=== PATIENT | female | born 1935 | race Caucasian/White ===

== ENCOUNTER 2016-10-07 15:47 | Emergency (ER) | payer MEDICARE, BC ==
[2016-10-07] MEDS ORDERED: NS 0.9% 1000 ML* 1,000 ML IV SCH (16:15)
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
[2016-10-07] MEDS: Acetaminophen TAB* 325 MG PO ONE ×2 (17:29→17:34)
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
[2016-10-07 17:56] VITALS: BP 186/69
== END 2016-10-07 17:56 | disposition home or self-care (01) ==
LOC: ED 15:47
DX: S20.219A Contusion of unspecified front wall of thorax, initial encounter (principal); V49.9XXA Car occupant (driver) (passenger) injured in unspecified traffic accident, initial encounter; Y93.9 Activity, unspecified; Y92.9 Unspecified place or not applicable
CPT/HCPCS: 71250; 72125; 74176; 99283; A9270-GY

== ENCOUNTER 2018-01-27 21:50 | Emergency (ER) | payer MEDICARE, OTHER ==
[2018-01-27] MEDS ORDERED: Albuterol 2.5 MG/3 ML NEB.SOL* (0.083%) INH ONE (22:12)
[2018-01-27] MEDS ORDERED: Famotidine IV* 10 MG/ML 2 ML (20 mg) IV SLOW PU ONE (22:12)
[2018-01-27] MEDS ORDERED: methylPREDNISolone 125 MG* 2 ML VIAL IV ONE (22:12)
--- NOTE | 2018-01-27 23:07 | ED ---
Allergic Reaction/Systemic - HPI Summary HPI Summary: 82-year-old female presents with allergic reaction today. She states she has a grape and immediately afterwards she felt some chest tightness and shortness breath. She states she has history asthma. She tried inhaler and it did not work. She took a benadryl and started to feel better. States she has history of multiple food allergies. She's never had this reaction to grapes before. She states she's had this reaction before to wine but never to grapes. She denies any bowel pain. No nausea and vomiting. no tongue swelling. No difficulty swallowing. No fever or headache. She is concerned that she will have a delayed reaction. States normally when this happens she is given a steroid and pepcid and her symptoms resolve. - History of Current Complaint Chief Complaint: EDAllergicReaction Time Seen by Provider: 01/27/18 22:07 Pain Intensity: 0 - Allergies/Home Medications Allergies/Adverse Reactions: Allergies Allergy/AdvReac Type Severity Reaction Status Date / Time MS Ampicillin [Ampicillin] Allergy Severe Rash Verified 12/17/15 22:19 MS Cimetidine Allergy Severe Altered Verified 12/17/15 22:19 [From Tagamet HB] Mental Status MS Levofloxacin Allergy Severe Wheezing Verified 12/17/15 22:19 [Levofloxacin] MS Penicillins [Penicillins] Allergy Severe Hives Verified 12/17/15 22:19 MS Terfenadine [From Seldane] Allergy Severe Palpitation Verified 12/17/15 22:19 s MS Codeine [Codeine] Allergy Intermediate GI Upset Verified 12/17/15 22:19 MS Morphine [Morphine] Allergy Intermediate Vomiting Verified 12/17/15 22:19 MS Amoxicillin [Amoxicillin] Allergy Rash Verified 12/17/15 22:19 MS Cefaclor [From Ceclor] Allergy Unknown Verified 12/17/15 22:19 Reaction Details MS Morphine and Related Allergy Vomiting Verified 12/17/15 22:19 [Morphine and Related] CONTRAST DYE Allergy Wheezing Uncoded 12/17/15 22:19 PMH/Surg Hx/FS Hx/Imm Hx Endocrine/Hematology History: Denies: Hx Diabetes, Hx Systemic Lupus Erythematosus Cardiovascular History: Denies: Hx Congestive Heart Failure, Hx Hypertension, Hx Pacemaker/ICD Respiratory History: Reports: Hx Asthma - moderate to severe, Hx Pneumonia, Hx Seasonal Allergies Denies: Hx Chronic Bronchitis, Hx Chronic Obstructive Pulmonary Disease (COPD ), Hx Cystic Fibrosis, Hx Lung Cancer, Hx Pleural Effusion, Hx Pulmonary Edema, Hx Pulmonary Embolism, Hx Sleep Apnea, Other Respiratory Problems/Disorders GI History: Reports: Hx Diverticulosis, Hx Gastroesophageal Reflux Disease, Hx Irritable Bowel, Hx Jaundice, Other GI Disorders - severe adhesions in abdomen with adhesive band around bowel Denies: Hx Cirrhosis, Hx Crohn's Disease, Hx Gall Bladder Disease, Hx Gastrointestinal Bleed, Hx Hiatal Hernia, Hx Obstructive Bowel, Hx Ileostomy, Hx Pyloric Stenosis, Hx Ulcer History: Denies: Hx Renal Disease Musculoskeletal History: Reports: Hx Arthritis, Hx Osteoporosis, Other Musculoskeletal History - collapsed vertebra in back Denies: Hx Rheumatoid Arthritis, Hx Back Problems, Hx Bursitis, Hx Congenital Bone Abnormalities, Hx Fibromyalgia, Hx Gout, Hx Orthopedic Injury, Hx Scoliosis, Hx Tendonitis Sensory History: Reports: Hx Contacts or Glasses Denies: Hx Cataracts, Hx Eye Injury, Hx Eye Prosthesis, Hx Glaucoma, Hx Legally Blind, Hx Macular Degeneration, Hx Vision Problem, Hx Deafness, Hx Hearing Aid, Hx Hearing Problem, Other Sensory Impairments Opthamlomology History: Reports: Hx Contacts or Glasses Denies: Hx Cataracts, Hx Eye Injury, Hx Eye Prosthesis, Hx Glaucoma, Hx Legally Blind, Hx Macular Degeneration, Hx Vision Problem, Other Sensory Impairments Neurological History: Reports: Hx Migraine Denies: Hx Dementia, Hx Developmental Delay, Hx Headaches, Hx Nerve Disease, Hx Seizures, Hx Spinal Cord Injury, Hx Transient Ischemic Attacks (TIA), Other Neuro Impairments/Disorders Psychiatric History: Denies: Hx Panic Disorder - Cancer History Cancer Type, Location and Year: BASAL CELL Hx Chemotherapy: No - Surgical History Surgery Procedure, Year, and Place: BASAL CELL REMOVED FROM ELBOW, cyst burst in left ovary, hysterectomy, appy, tonsilectomy (age 19) Hx Anesthesia Reactions: No Infectious Disease History: No Infectious Disease History: Reports: Hx Hepatitis - 1956, Hx Shingles Denies: Hx Human Immunodeficiency Virus (HIV), Hx of Known/Suspected MRSA, Hx Tuberculosis, Hx Known/Suspected VRE, Hx Known/Suspected VRSA, History Other Infectious Disease, Traveled Outside the [place] in Last 30 Days - Family History Known Family History: Positive: Diabetes - Social History Alcohol Use: None Hx Substance Use: No Substance Use Type: Reports: None Hx Tobacco Use: No Smoking Status (MU): Never Smoked Tobacco Review of Systems Negative: Fever Positive: Sore Throat - mucus Negative: Chest Pain Positive: Shortness Of Breath Negative: Abdominal Pain, Vomiting All Other Systems Reviewed And Are Negative: Yes Physical Exam Triage Information Reviewed: Yes Vital Signs On Initial Exam: Initial Vitals Temp Pulse Resp BP Pulse Ox 98.9 F 83 18 164/74 98 01/27/18 21:54 01/27/18 21:54 01/27/18 21:54 01/27/18 21:54 01/27/18 21:54 Vital Signs Reviewed: Yes Appearance: Positive: Well-Appearing Skin: Positive: Warm, Dry Head/Face: Positive: Normal Head/Face Inspection Eyes: Positive: Normal, EOMI, ROSCOE, Conjunctiva Clear ENT: Positive: Normal ENT inspection, Pharynx normal, TMs normal Respiratory/Lung Sounds: Positive: Clear to Auscultation, Breath Sounds Present Cardiovascular: Positive: Normal, RRR Abdomen Description: Positive: Nontender, Soft Bowel Sounds: Positive: Present Musculoskeletal: Positive: Normal Neurological: Positive: Normal Psychiatric: Positive: Normal Diagnostics - Vital Signs Vital Signs Temp Pulse Resp BP Pulse Ox 01/27/18 22:46 67 16 100 01/27/18 21:54 98.9 F 83 18 164/74 98 - Laboratory Lab Statement: Any lab studies that have been ordered have been reviewed, and results considered in the medical decision making process. Re-Evaluation - Re-Evaluation First Eval Re-Evaluation Time: 23:39 Change: Improved Comment: no chest tightness Allergic Reaction Course/Dx - Course Course Of Treatment: 82-year-old female presents with allergic reaction today. She states she has a grape and immediately afterwards she felt some chest tightness and shortness breath. She states she has history asthma. She tried inhaler and it did not work. She took a benadryl and started to feel better. States she has history of multiple food allergies. She's never had this reaction to grapes before. She states she's had this reaction before to wine but never to grapes. She denies any bowel pain. No nausea and vomiting. no tongue swelling. No difficulty swallowing. No fever or headache. She is concerned that she will have a delayed reaction. States normally when this happens she is given a steroid and pepcid and her symptoms resolve. on exam pharynx normal. lungs CTA. gave steriod and nebulizer and symptoms resolved. will send home on steriod. patient understand and agrees with plan. - Diagnoses Differential Diagnosis/HQI/PQRI: Positive: Anaphylaxis, Local Allergic Reaction , Urticaria Provider Diagnoses: Allergic reaction Discharge - Sign-Out/Discharge Documenting (check all that apply): Patient Departure - Discharge Plan Condition: Good Disposition: HOME Prescriptions: predniSONE TAB* [Deltasone TAB*] 50 mg PO DAILY #4 tab Patient Education Materials: Food Allergy (ED) Referrals: Cristiana Garcia MD [Primary Care Provider] - Additional Instructions: take steroid once a day take Benadryl every 6 hours as need for any allergic reaction symptoms Take inhaler as needed for shortness of breath every 4 hours Follow up with primary within 5 days Return to ED if develop any new or worsening symptoms - Billing Disposition and Condition Condition: GOOD Disposition: Home
[2018-01-27 23:29] VITALS: BP 134/53
== END 2018-01-27 23:28 | disposition home or self-care (01) ==
LOC: ED 21:50
DX: T78.40XA Allergy, unspecified, initial encounter (principal); J02.9 Acute pharyngitis, unspecified; R06.02 Shortness of breath; X58.XXXA Exposure to other specified factors, initial encounter
CPT/HCPCS: 96374; 96375; 99282; J2930

== ENCOUNTER 2018-03-02 17:00 | Emergency (ER) | payer BC, MEDICARE ==
--- NOTE | 2018-03-02 17:37 | ED ---
Allergic Reaction/Systemic - HPI Summary HPI Summary: This patient is an 82 year old F presenting to ED with a chief complaint of allergic reaction about 2-3 minutes after having seafood at about 1640. Patient took 1.5 teaspoon of benadryl and solumedrol PO. After taking medications, she felt better about 40 minutes later. The patient rates the pain 0/10 in severity. Symptoms aggravated by nothing. Symptoms alleviated by self-treatment [employer]. Patient reports cough and tightness in her chest. - History of Current Complaint Chief Complaint: EDAllergicReaction Time Seen by Provider: 03/02/18 17:19 Hx Obtained From: Patient Onset/Duration: Sudden Onset, Started hours ago - since 1640, Still Present Timing: Constant Severity Currently: None Pain Intensity: 0 Pain Scale Used: 0-10 Numeric Aggravating Factor(s): Nothing Alleviating Factor(s): Other - 1.5 teaspoon of benadryl and solumedrol PO Associated Signs And Symptoms: Positive: Cough Wheezing, Other: - chest tightness - Allergies/Home Medications Allergies/Adverse Reactions: Allergies Allergy/AdvReac Type Severity Reaction Status Date / Time amoxicillin Allergy Anaphylatic Verified 03/02/18 17:10 Shock ampicillin Allergy Anaphylatic Verified 03/02/18 17:10 Shock cefaclor [From Ceclor] Allergy Anaphylatic Verified 03/02/18 17:10 Shock cimetidine [From Tagamet] Allergy Anaphylatic Verified 03/02/18 17:10 Shock Iodinated Contrast- Oral and Allergy Anaphylatic Verified 03/02/18 17:10 IV Dye Shock levofloxacin Allergy Anaphylatic Verified 03/02/18 17:10 Shock morphine Allergy Anaphylatic Verified 03/02/18 17:10 Shock Penicillins Allergy Anaphylatic Verified 03/02/18 17:10 Shock terfenadine [From Seldane] Allergy Anaphylatic Verified 03/02/18 17:10 Shock food Allergy See Comment Uncoded 03/02/18 17:10 PMH/Surg Hx/FS Hx/Imm Hx Endocrine/Hematology History: Denies: Hx Diabetes, Hx Systemic Lupus Erythematosus Cardiovascular History: Denies: Hx Congestive Heart Failure, Hx Hypertension, Hx Pacemaker/ICD Respiratory History: Reports: Hx Asthma - moderate to severe, Hx Pneumonia, Hx Seasonal Allergies Denies: Hx Chronic Bronchitis, Hx Chronic Obstructive Pulmonary Disease (COPD ), Hx Cystic Fibrosis, Hx Lung Cancer, Hx Pleural Effusion, Hx Pulmonary Edema, Hx Pulmonary Embolism, Hx Sleep Apnea, Other Respiratory Problems/Disorders GI History: Reports: Hx Diverticulosis, Hx Gastroesophageal Reflux Disease, Hx Irritable Bowel, Hx Jaundice, Other GI Disorders - severe adhesions in abdomen with adhesive band around bowel Denies: Hx Cirrhosis, Hx Crohn's Disease, Hx Gall Bladder Disease, Hx Gastrointestinal Bleed, Hx Hiatal Hernia, Hx Obstructive Bowel, Hx Ileostomy, Hx Pyloric Stenosis, Hx Ulcer History: Denies: Hx Renal Disease Musculoskeletal History: Reports: Hx Arthritis, Hx Osteoporosis, Other Musculoskeletal History - collapsed vertebra in back Denies: Hx Rheumatoid Arthritis, Hx Back Problems, Hx Bursitis, Hx Congenital Bone Abnormalities, Hx Fibromyalgia, Hx Gout, Hx Orthopedic Injury, Hx Scoliosis, Hx Tendonitis Sensory History: Reports: Hx Contacts or Glasses Denies: Hx Cataracts, Hx Eye Injury, Hx Eye Prosthesis, Hx Glaucoma, Hx Legally Blind, Hx Macular Degeneration, Hx Vision Problem, Hx Deafness, Hx Hearing Aid, Hx Hearing Problem, Other Sensory Impairments Opthamlomology History: Reports: Hx Contacts or Glasses Denies: Hx Cataracts, Hx Eye Injury, Hx Eye Prosthesis, Hx Glaucoma, Hx Legally Blind, Hx Macular Degeneration, Hx Vision Problem, Other Sensory Impairments Neurological History: Reports: Hx Migraine Denies: Hx Dementia, Hx Developmental Delay, Hx Headaches, Hx Nerve Disease, Hx Seizures, Hx Spinal Cord Injury, Hx Transient Ischemic Attacks (TIA), Other Neuro Impairments/Disorders Psychiatric History: Denies: Hx Panic Disorder - Cancer History Cancer Type, Location and Year: BASAL CELL Hx Chemotherapy: No - Surgical History Surgery Procedure, Year, and Place: BASAL CELL REMOVED FROM ELBOW, cyst burst in left ovary, hysterectomy, appy, tonsilectomy (age 19) Hx Anesthesia Reactions: No Infectious Disease History: No Infectious Disease History: Reports: Hx Hepatitis - 1954, Hx Shingles Denies: Hx Human Immunodeficiency Virus (HIV), Hx of Known/Suspected MRSA, Hx Tuberculosis, Hx Known/Suspected VRE, Hx Known/Suspected VRSA, History Other Infectious Disease, Traveled Outside the [place] in Last 30 Days - Family History Known Family History: Positive: Diabetes - Social History Alcohol Use: None Hx Substance Use: No Substance Use Type: Reports: None Hx Tobacco Use: No Smoking Status (MU): Never Smoked Tobacco Review of Systems Negative: Fever Positive: Cough, Other - tightness in her chest All Other Systems Reviewed And Are Negative: Yes Physical Exam - Summary Physical Exam Summary: Appearance: The patient is well-nourished in no acute distress and in no acute pain. Skin: The skin is warm and dry and skin color reflects adequate perfusion. HEENT: The head is normocephalic and atraumatic. The pupils are equal and reactive. The conjunctivae are clear and without drainage. Nares are patent and without drainage. Mouth reveals moist mucous membranes and the throat is without erythema and exudate. The external ears are intact. The ear canals are patent and without drainage. The tympanic membranes are intact. Neck: The neck is supple with full range of motion and non-tender. There are no carotid bruits. There is no neck vein distension. Respiratory: Chest is non-tender. Lungs are clear to auscultation and breath sounds are symmetrical and equal. Cardiovascular: Heart is regular rate and rhythm. There is no murmur or rub auscultated. There is no peripheral edema and pulses are symmetrical and equal. Abdomen: The abdomen is soft and non-tender. There are normal bowel sounds heard in all four quadrants and there is no organomegaly palpated. Musculoskeletal: There is no back tenderness noted. Extremities are non-tender with full range of motion. There is good capillary refill. There is no peripheral edema or calf tenderness elicited. Neurological: Patient is alert and oriented to person, place and time. The patient has symmetrical motor strength in all four extremities. Cranial nerves are grossly intact. Deep tendon reflexes are symmetrical and equal in all four extremities. Psychiatric: The patient has an appropriate affect and does not exhibit any anxiety or depression. Triage Information Reviewed: Yes Vital Signs On Initial Exam: Initial Vitals Temp Pulse Resp BP Pulse Ox 98.2 F 73 18 148/52 97 03/02/18 17:10 03/02/18 17:10 03/02/18 17:10 03/02/18 17:10 03/02/18 17:10 Vital Signs Reviewed: Yes Diagnostics - Vital Signs Vital Signs Temp Pulse Resp BP Pulse Ox 03/02/18 17:10 98.2 F 73 18 148/52 97 - Laboratory Lab Statement: Any lab studies that have been ordered have been reviewed, and results considered in the medical decision making process. Allergic Reaction Course/Dx - Course Course Of Treatment: Ms. Mae was feeling improved by the time she arrived here and we will extra for a couple of minutes until she requested to be discharged. I did offer to give her additional steroids her medications here but she felt she didn't need them. - Diagnoses Differential Diagnosis/HQI/PQRI: Positive: Other - allergic reaction Provider Diagnoses: Allergic reaction Discharge - Sign-Out/Discharge Documenting (check all that apply): Patient Departure - Discharge Plan Condition: Stable Disposition: HOME Prescriptions: methylPREDNISolone [Medrol Dosepak 4 MG*] 4 mg PO .SEE DU INSTRUCTION #1 tab Patient Education Materials: Food Allergy (ED), General Allergic Reaction (ED) Referrals: Cristiana Garcia MD [Primary Care Provider] - (Please follow up with your primary care physician in 2-3 days.) Additional Instructions: Please follow up with your primary care physician in 2-3 days. RETURN TO THE ED FOR ANY NEW OR WORSENING SYMPTOMS. - Billing Disposition and Condition Condition: STABLE Disposition: Home - Attestation Statements Document Initiated by Scribe: Yes Documenting Scribe: Napoleon Owens Provider For Whom Angie is Documenting (Include Credential): Bethel Holbrook MD Scribe Attestation: Napoleon Vitale, scribed for Bethel Holbrook MD on 03/02/18 at 2051. Scribe Documentation Reviewed: Yes Provider Attestation: The documentation as recorded by the Napoleon walls accurately reflects the service I personally performed and the decisions made by me, Bethel Holbrook MD
[2018-03-02 18:28] VITALS: BP 136/66
== END 2018-03-02 18:25 | disposition home or self-care (01) ==
LOC: ED 17:00
DX: T78.40XA Allergy, unspecified, initial encounter (principal); X58.XXXA Exposure to other specified factors, initial encounter; Y92.9 Unspecified place or not applicable; Z85.820 Personal history of malignant melanoma of skin
CPT/HCPCS: 99282

== ENCOUNTER 2018-06-19 17:16 | Emergency (ER) | payer MEDICARE, OTHER ==
--- NOTE | 2018-06-19 18:06 | ED ---
Neurological HPI - HPI Summary HPI Summary: This pt is an 82 y/o female [facility] from Dr. Garcia's office for right foot tingling and right leg numbness today. Pt reports she was sitting down on a futon to eat lunch at around noon or 13:00 today when she thinks she fell asleep. Pt states what woke her up were pins and needles on her right foot and her whole right leg was numb. She also notes her spine was aching. Pt started ambulating while she had this episode of tingling and numbness. She states she ambulated for 10 minutes and it felt much better. Pt reports this episode lasted between 10-15 minutes and resolved. Denies dizziness , lightheadedness, headache. She also recalls falling asleep this morning. Pt called Dr. Garcia and was scheduled to see her at 15:30. Pt went to see Dr. Garcia and referred her to the ED. Pt reports feeling better now. Denies trauma to her right leg. On Saturday pt couldn't swallow her food because it was painful. Pt only takes amlodipine for HTN (started this in 2017), he takes an inhaler steroid BID for asthma and albuterol PRN. She has hx of back problems, has records of images here. - History of Current Complaint Chief Complaint: EDExtremityLower Stated Complaint: RIGHT LEG PAIN Time Seen by Provider: 06/19/18 17:25 Hx Obtained From: Patient Onset/Duration: Sudden Onset, Started minutes ago - 10-15, Still Present Timing: Sudden Onset Onset Severity: Moderate Current Severity: None Neurological Deficit Location: RLE Pain Intensity: 0 Pain Scale Used: 0-10 Numeric Character: Numbness/Tingling - on right foot Episode Lasting: Seconds/Minutes - 10-15 minutes Aggravating: Nothing Alleviating: Nothing Associated Signs and Symptoms: Positive: Numbness. Negative: Headache, Dizziness, Pain, Lightheadness, Fever - Allergy/Home Medications Allergies/Adverse Reactions: Allergies Allergy/AdvReac Type Severity Reaction Status Date / Time amoxicillin Allergy Anaphylatic Verified 03/02/18 17:10 Shock ampicillin Allergy Anaphylatic Verified 03/02/18 17:10 Shock cefaclor [From Ceclor] Allergy Anaphylatic Verified 03/02/18 17:10 Shock cimetidine [From Tagamet] Allergy Anaphylatic Verified 03/02/18 17:10 Shock Iodinated Contrast- Oral and Allergy Anaphylatic Verified 03/02/18 17:10 IV Dye Shock levofloxacin Allergy Anaphylatic Verified 03/02/18 17:10 Shock morphine Allergy Anaphylatic Verified 03/02/18 17:10 Shock Penicillins Allergy Anaphylatic Verified 03/02/18 17:10 Shock terfenadine [From Seldane] Allergy Anaphylatic Verified 03/02/18 17:10 Shock food Allergy See Comment Uncoded 03/02/18 17:10 Home Medications: Home Medications Al Hydrox/Mg Hydrox/Pancho BULK* [Mylanta - BULK BOT*] 15 ml PO BID PRN 06/19/18 [ History Confirmed 06/19/18] Cholecalciferol (Vitamin D3) [Vitamin D3] 1,000 unit PO DAILY 06/19/18 [History Confirmed 06/19/18] Magnesium Oxide [Magnesium] 500 mg PO DAILY 06/19/18 [History Confirmed 06/19/18 ] amLODIPine TAB* [Norvasc 5 mg TAB*] 5 mg PO DAILY 06/19/18 [History Confirmed ] PMH/Surg Hx/FS Hx/Imm Hx Endocrine/Hematology History: Denies: Hx Diabetes, Hx Systemic Lupus Erythematosus Cardiovascular History: Denies: Hx Congestive Heart Failure, Hx Hypertension, Hx Pacemaker/ICD Respiratory History: Reports: Hx Asthma - moderate to severe, Hx Pneumonia, Hx Seasonal Allergies Denies: Hx Chronic Bronchitis, Hx Chronic Obstructive Pulmonary Disease (COPD ), Hx Cystic Fibrosis, Hx Lung Cancer, Hx Pleural Effusion, Hx Pulmonary Edema, Hx Pulmonary Embolism, Hx Sleep Apnea, Other Respiratory Problems/Disorders GI History: Reports: Hx Diverticulosis, Hx Gastroesophageal Reflux Disease, Hx Irritable Bowel, Hx Jaundice, Other GI Disorders - severe adhesions in abdomen with adhesive band around bowel Denies: Hx Cirrhosis, Hx Crohn's Disease, Hx Gall Bladder Disease, Hx Gastrointestinal Bleed, Hx Hiatal Hernia, Hx Obstructive Bowel, Hx Ileostomy, Hx Pyloric Stenosis, Hx Ulcer History: Denies: Hx Renal Disease Musculoskeletal History: Reports: Hx Arthritis, Hx Osteoporosis, Other Musculoskeletal History - collapsed vertebra in back Denies: Hx Rheumatoid Arthritis, Hx Back Problems, Hx Bursitis, Hx Congenital Bone Abnormalities, Hx Fibromyalgia, Hx Gout, Hx Orthopedic Injury, Hx Scoliosis, Hx Tendonitis Sensory History: Reports: Hx Contacts or Glasses Denies: Hx Cataracts, Hx Eye Injury, Hx Eye Prosthesis, Hx Glaucoma, Hx Legally Blind, Hx Macular Degeneration, Hx Vision Problem, Hx Deafness, Hx Hearing Aid, Hx Hearing Problem, Other Sensory Impairments Opthamlomology History: Reports: Hx Contacts or Glasses Denies: Hx Cataracts, Hx Eye Injury, Hx Eye Prosthesis, Hx Glaucoma, Hx Legally Blind, Hx Macular Degeneration, Hx Vision Problem, Other Sensory Impairments Neurological History: Reports: Hx Migraine Denies: Hx Dementia, Hx Developmental Delay, Hx Headaches, Hx Nerve Disease, Hx Seizures, Hx Spinal Cord Injury, Hx Transient Ischemic Attacks (TIA), Other Neuro Impairments/Disorders Psychiatric History: Denies: Hx Panic Disorder - Cancer History Cancer Type, Location and Year: BASAL CELL Hx Chemotherapy: No - Surgical History Surgery Procedure, Year, and Place: BASAL CELL REMOVED FROM ELBOW, cyst burst in left ovary, hysterectomy, appy, tonsilectomy (age 19) Hx Anesthesia Reactions: No Infectious Disease History: No Infectious Disease History: Reports: Hx Hepatitis - 1954, Hx Shingles Denies: Hx Human Immunodeficiency Virus (HIV), Hx of Known/Suspected MRSA, Hx Tuberculosis, Hx Known/Suspected VRE, Hx Known/Suspected VRSA, History Other Infectious Disease, Traveled Outside the [place] in Last 30 Days - Family History Known Family History: Positive: Diabetes - Social History Alcohol Use: None Hx Substance Use: No Substance Use Type: Reports: None Hx Tobacco Use: No Smoking Status (MU): Never Smoked Tobacco Review of Systems Negative: Fever, Chills Negative: Erythema Negative: Sore Throat Negative: Chest Pain Negative: Shortness Of Breath, Cough Negative: Abdominal Pain, Vomiting, Nausea Negative: dysuria, hematuria Negative: Myalgia, Edema Negative: Rash Neurological: Other - NEGATIVE: dizziness, lightheadedness Positive: Paresthesia - right foot, Numbness - right foot. Negative: Headache All Other Systems Reviewed And Are Negative: Yes Physical Exam - Summary Physical Exam Summary: Constitutional: Well-developed, Well-nourished, Alert. (-) Distressed Skin: Warm, Dry HENT: Normocephalic; Atraumatic Eyes: Conjunctiva normal Neck: Musculoskeletal ROM normal neck. (-) JVD, (-) Stridor, (-) Tracheal deviation Cardio: Rhythm regular, rate normal, Heart sounds normal; Intact distal pulses; The pedal pulses are 2+ and symmetric. Radial pulses are 2+ and symmetric. (-) Murmur Pulmonary/Chest wall: Effort normal. (-) Respiratory distress, (-) Wheezes, (-) Rales Abd: Soft. (-) Tenderness, (-) Distension, (-) Guarding, (-) Rebound Musculoskeletal: (-) Edema Lymph: (-) Cervical adenopathy Neuro: Alert, Oriented x3, Strength normal, Cranial nerves II-XII are grossly intact. (-) Dysmetria, (-) Nystagmus, (-) Ataxia by finger to nose testing, (-) Sensory deficit. Psych: Mood and affect Normal Triage Information Reviewed: Yes Vital Signs On Initial Exam: Initial Vitals Temp Pulse Resp BP Pulse Ox 97.6 F 68 18 167/75 98 06/19/18 17:33 06/19/18 17:33 06/19/18 17:33 06/19/18 17:33 06/19/18 17:33 Vital Signs Reviewed: Yes Diagnostics - Vital Signs Vital Signs Temp Pulse Resp BP Pulse Ox 06/19/18 17:33 97.6 F 68 18 167/75 98 - Laboratory Result Diagrams: 06/19/18 18:32 06/19/18 18:32 Lab Statement: Any lab studies that have been ordered have been reviewed, and results considered in the medical decision making process. - CT Brain CT CT Interpretation Completed By: Radiologist Summary of CT Findings: IMPRESSION: Chronic ischemic white matter change. No definite intracranial mass or hemorrhage is noted. No significant change is noted since previous exam of July 21, 2015. Dr. Larkin has reviewed this report. Re-Evaluation - Re-Evaluation First Eval Re-Evaluation Time: 18:28 Comment: Dr. Bermudez, neurologist, at bedside. Course/Dx - Course Assessment/Plan: Pt is an 82 y/o female who presents to the ED referred from Dr. Garcia's office for right foot tingling and right leg numbness today. Pt reports she was sitting down on a futon to eat lunch at around noon or 13:00 today when she thinks she fell asleep. Pt states what woke her up were pins and needles on her right foot and her whole right leg was numb. Pt ambulated during this episode and tingling and numbness resolved after 10-15 minutes. PMHx: back problems, HTN, asthma. I reviewed the records from an abdomen/pelvis CT from 2014 that showed degenerative changes in the back. Brain CT shows chronic ischemic white matter change. No definite intracranial mass or hemorrhage is noted. No significant change is noted since previous exam of July 21, 2015. Dr. Bermudez consulted on the pt. He agrees with peripheral nerve compression. Pt will be discharged home with follow up from her PCP in 2-3 days. She is instructed to return to the ED for any worsening or new symptoms. - Diagnoses Provider Diagnoses: Paresthesia Discharge - Sign-Out/Discharge Documenting (check all that apply): Patient Departure - Discharge home - Discharge Plan Condition: Stable Disposition: HOME Patient Education Materials: Paresthesia (ED) Referrals: Cristiana Garcia MD [Primary Care Provider] - Additional Instructions: Follow up with your primary care provider in 2-3 days. RETURN TO THE EMERGENCY DEPARTMENT FOR CHANGING OR WORSENING SYMPTOMS. - Attestation Statements Document Initiated by Scribe: Yes Documenting Scribe: Teri Martinez Provider For Whom Scribe is Documenting (Include Credential): Pelon Larkin MD Scribe Attestation: Teri Vitale, scribed for Pelon Larkin MD on 06/19/18 at 1856. Status of Scribe Document: Ready
[2018-06-19 18:38] LABS: Hematocrit 39 % (35-47); Hemoglobin 13.4 g/dl (12.0-16.0); Mean Corpuscular HGB Conc 34 g/dl (31-36); Mean Corpuscular Hemoglobin 31 pg (27-31); Mean Corpuscular Volume 90 fL (80-97); Mean Platelet Volume 9.6 fL (7.4-10.4); Platelet Count 229 10^3/ul (150-450); Red Blood Count 4.35 10^6/ul (4.00-5.40); Red Cell Distribution Width 13 % (10.5-15)
[2018-06-19 18:55] LABS: Albumin 4.1 g/dL (3.2-5.2); Albumin/Globulin Ratio 1.6 (1-3); BUN/Creatinine Ratio 23.5 (8-20); Calcium 8.8 mg/dL (8.6-10.3); EGFR Non-African American 63.7 (>60); Globulin 2.5 g/dL (2-4); Total Bilirubin 0.3 mg/dL (0.2-1.0); Total Protein 6.6 g/dL (6.4-8.9)
[2018-06-19 19:25] VITALS: BP 171/73
--- NOTE | 2018-06-19 20:40 | CONS ---
NEUROLOGY CONSULTATION: DATE OF CONSULT: 06/19/18 LOCATION: She is in emergency room. REFERRING PROVIDER: Dr. Larkin. PRIMARY CARE DOCTOR: Dr. Garcia. CHIEF COMPLAINT: Numbness of the leg. HISTORY OF PRESENT ILLNESS: Sandra Mae is an 82-year-old right-handed woman who was having lunch this afternoon on her usual place that she sits to watch the television. She fell asleep and when she woke up and tried to stand up, her whole right leg felt numb. It was very intensely tingly and very uncomfortable. She walked around gingerly for about 15 minutes and it resolved. She was able to speak clearly to her and did not feel that she was cognitively impaired at all. She had no word-finding problems. She had no numbness or weakness of the upper extremities, the left leg or the face. It has not recurred since. She has not had it before. There is no prior history of cerebrovascular disease. She said they called Dr. Garcia's office and it was recommended she be evaluated in the emergency room. PAST MEDICAL HISTORY: Is notable for chronic neck and back pain. She has had cataract extractions. She has a history of migraines that are triggered by various foods and other allergens. MEDICATIONS: At home consist of: 1. Magnesium 500 mg p.o. daily. 2. Vitamin D3 at 1000 units p.o. daily. 3. Amlodipine 5 mg p.o. daily. 4. EpiPen p.r.n. ALLERGIES: She has numerous allergies listed in the EMR. REVIEW OF SYSTEMS: Negative for headaches. She has chronic neck and back pain. She has occasionally had episodes of pain down the left leg but not the right. She still drives. PHYSICAL EXAMINATION: She is well nourished and well hydrated. Temperature 97.6, blood pressure 167/75, heart rate 68 and regular, respiratory rate 18 and oxygen saturations 98% on room air. Heart is in a regular rhythm with a grade 2 /6 early systolic murmur heard at best at the right upper sternal border. There are no cervical bruits, but there are transmitted murmurs. Neurological exam: Pupils are irregular and unequal with the left being 2 mm smaller than the right which he attributes to old cataracts. In addition, the right pupil is a little irregular. They both react to light. Eye movements are normal. Funduscopic exam is notable for some silver wiring, but no embolic phenomena. Facial musculature is symmetric. Facial sensation to pin and light touch is symmetric. Palate and tongue appeared normal and there is no dysarthria. Motor exam reveals excellent strength proximally and distally in arms and legs. There is no pronator drift. Sensatory exam to light touch and pin discrimination is intact and symmetric in the upper and lower extremities. The exception is that there is decreased pin discrimination in the left medial calf down to the ankle compared to the right lateral calf. Reflexes are intact and symmetric in biceps, knees and trace at the ankles. Plantar responses are flexor bilaterally. She is alert and oriented and an excellent detailed historian. Memory is intact and language is fluent. She has adequate attention, concentration and excellent fund of knowledge. DIAGNOSTIC STUDIES/LAB DATA: Includes a CT of the brain which I reviewed personally. It reveals some hypodensity in the deep white matter consistent with chronic ischemic change, but fairly mild for her age. So far, other laboratories available are normal CBC. Chemistry and other labs are still pending. IMPRESSION: Transient sciatica nerve compression. They only lasted 15 minutes and she is back to normal. The presence of pain signifies a peripheral process and not a central one and so I do not think she needs any further evaluation for cerebrovascular disease and no treatment specific for it. I have discussed my impression with Dr. Larkin and also her son, Dr. Aftab Mae. [id number] #: [id number] MTDD
== END 2018-06-19 19:05 | disposition home or self-care (01) ==
LOC: ED 17:16
DX: G57.01 Lesion of sciatic nerve, right lower limb (principal); R20.2 Paresthesia of skin; K21.9 Gastro-esophageal reflux disease without esophagitis; Z88.5 Allergy status to narcotic agent; Z88.0 Allergy status to penicillin; Z88.8 Allergy status to other drugs, medicaments and biological substances; Z88.1 Allergy status to other antibiotic agents; Z91.041 Radiographic dye allergy status
CPT/HCPCS: 36415; 70450; 80053; 85027; 99282

== ENCOUNTER 2018-07-07 19:04 | Emergency (ER) | payer MEDICARE, OTHER ==
[2018-07-07 19:27] LABS: ABS Basophils 0.1 10^3/ul (0-0.2); ABS Eosinophils 0 10^3/ul (0-0.6); ABS Lymphocytes 0.9 10^3/ul (1.0-4.8); ABS Monocytes 0.7 10^3/ul (0-0.8); ABS Neutrophils 5.3 10^3/ul (1.5-7.7); ABS Nucleated RBC 0 10^3/ul; Eosinophil % 0.5 %; Hematocrit 40 % (35-47); Hemoglobin 13.6 g/dl (12.0-16.0); Lymphocyte % 13.4 %; Mean Corpuscular HGB Conc 34 g/dl (31-36); Mean Corpuscular Hemoglobin 31 pg (27-31); Mean Corpuscular Volume 90 fL (80-97); Mean Platelet Volume 9.4 fL (7.4-10.4); Nucleated Red Blood Cells % 0; Platelet Count 233 10^3/ul (150-450); Red Blood Count 4.44 10^6/ul (4.00-5.40); Red Cell Distribution Width 13 % (10.5-15)
--- NOTE | 2018-07-07 19:43 | ED ---
Abdominal Pain/Female - HPI Summary HPI Summary: An 82 y/o female accompanied by her daughter presents to [facility] with a chief complaint of abdominal pain since 09:00 07/07/18. Per triage note, Pt c/o abdominal pain since early this morning. States she has a hx of diverticulitis and fears she is having a flare up. At triage the patient had a temperature of 102.6. She rates her current pain as 2/10. She also c/o nausea without vomiting. She denies any urinary symptoms and reports that her bowel movements have been normal. She came to the ED because she could not eat at dinner. Hx diverticulitis SHx appendectomy, total hysterectomy, tubal ligations. - History of Current Complaint Chief Complaint: EDAbdPain Stated Complaint: ABD PAIN Time Seen by Provider: 07/07/18 19:06 Hx Obtained From: Patient Onset/Duration: Sudden Onset, Lasting Hours, Still Present Timing: Hours Severity Initially: Mild Severity Currently: Mild Pain Intensity: 2 Pain Scale Used: 0-10 Numeric Location: Diffuse - lower Radiates: No Character: Other: - Unable to describe Aggravating Factor(s): Nothing Alleviating Factor(s): Nothing Associated Signs and Symptoms: Positive: Nausea. Negative: Fever, Vomiting Allergies/Adverse Reactions: Allergies Allergy/AdvReac Type Severity Reaction Status Date / Time amoxicillin Allergy Anaphylatic Verified 07/07/18 19:25 Shock ampicillin Allergy Anaphylatic Verified 07/07/18 19:25 Shock cefaclor [From Ceclor] Allergy Anaphylatic Verified 07/07/18 19:25 Shock cimetidine [From Tagamet] Allergy Anaphylatic Verified 07/07/18 19:25 Shock Iodinated Contrast- Oral and Allergy Anaphylatic Verified 07/07/18 19:25 IV Dye Shock levofloxacin Allergy Anaphylatic Verified 07/07/18 19:25 Shock morphine Allergy Anaphylatic Verified 07/07/18 19:25 Shock Penicillins Allergy Anaphylatic Verified 07/07/18 19:25 Shock terfenadine [From Seldane] Allergy Anaphylatic Verified 07/07/18 19:25 Shock food Allergy See Comment Uncoded 07/07/18 19:25 PMH/Surg Hx/FS Hx/Imm Hx Endocrine/Hematology History: Denies: Hx Diabetes, Hx Systemic Lupus Erythematosus Cardiovascular History: Denies: Hx Congestive Heart Failure, Hx Hypertension, Hx Pacemaker/ICD Respiratory History: Reports: Hx Asthma - moderate to severe, Hx Pneumonia, Hx Seasonal Allergies Denies: Hx Chronic Bronchitis, Hx Chronic Obstructive Pulmonary Disease (COPD ), Hx Cystic Fibrosis, Hx Lung Cancer, Hx Pleural Effusion, Hx Pulmonary Edema, Hx Pulmonary Embolism, Hx Sleep Apnea, Other Respiratory Problems/Disorders GI History: Reports: Hx Diverticulosis, Hx Gastroesophageal Reflux Disease, Hx Irritable Bowel, Hx Jaundice, Other GI Disorders - severe adhesions in abdomen with adhesive band around bowel Denies: Hx Cirrhosis, Hx Crohn's Disease, Hx Gall Bladder Disease, Hx Gastrointestinal Bleed, Hx Hiatal Hernia, Hx Obstructive Bowel, Hx Ileostomy, Hx Pyloric Stenosis, Hx Ulcer History: Denies: Hx Renal Disease Musculoskeletal History: Reports: Hx Arthritis, Hx Osteoporosis, Other Musculoskeletal History - collapsed vertebra in back Denies: Hx Rheumatoid Arthritis, Hx Back Problems, Hx Bursitis, Hx Congenital Bone Abnormalities, Hx Fibromyalgia, Hx Gout, Hx Orthopedic Injury, Hx Scoliosis, Hx Tendonitis Sensory History: Reports: Hx Contacts or Glasses Denies: Hx Cataracts, Hx Eye Injury, Hx Eye Prosthesis, Hx Glaucoma, Hx Legally Blind, Hx Macular Degeneration, Hx Vision Problem, Hx Deafness, Hx Hearing Aid, Hx Hearing Problem, Other Sensory Impairments Opthamlomology History: Reports: Hx Contacts or Glasses Denies: Hx Cataracts, Hx Eye Injury, Hx Eye Prosthesis, Hx Glaucoma, Hx Legally Blind, Hx Macular Degeneration, Hx Vision Problem, Other Sensory Impairments Neurological History: Reports: Hx Migraine Denies: Hx Dementia, Hx Developmental Delay, Hx Headaches, Hx Nerve Disease, Hx Seizures, Hx Spinal Cord Injury, Hx Transient Ischemic Attacks (TIA), Other Neuro Impairments/Disorders Psychiatric History: Denies: Hx Panic Disorder - Cancer History Cancer Type, Location and Year: BASAL CELL Hx Chemotherapy: No - Surgical History Surgery Procedure, Year, and Place: BASAL CELL REMOVED FROM ELBOW, cyst burst in left ovary, hysterectomy, appy, tonsilectomy (age 19) Hx Anesthesia Reactions: No - Immunization History Date of Tetanus Vaccine: unk Date of Influenza Vaccine: unk Infectious Disease History: No Infectious Disease History: Reports: Hx Hepatitis - 4, Hx Shingles Denies: Hx Human Immunodeficiency Virus (HIV), Hx of Known/Suspected MRSA, Hx Tuberculosis, Hx Known/Suspected VRE, Hx Known/Suspected VRSA, History Other Infectious Disease, Traveled Outside the [place] in Last 30 Days - Family History Known Family History: Positive: Diabetes - Social History Alcohol Use: None Hx Substance Use: No Substance Use Type: Reports: None Hx Tobacco Use: No Smoking Status (MU): Never Smoked Tobacco Review of Systems Positive: Fever Positive: Abdominal Pain, Nausea. Negative: Vomiting Positive: no symptoms reported All Other Systems Reviewed And Are Negative: Yes Physical Exam - Summary Physical Exam Summary: Appearance: Well-appearing, Well-nourished, lying in bed comfortably Skin: Warm, dry, no obvious rash Eyes: sclera anicteric, no conjunctival pallor ENT: mucous membranes moist, pharynx appears normal Neck: Supple, nontender Respiratory: Clear to auscultation, no signs of respiratory distress Cardiovascular: Normal S1, S2. No murmurs. Normal distal pulses in tibial and radial bilaterally. Abdomen: Soft, lower abdominal tenderness without peritoneal signs, normal active bowel sounds present Musculoskeletal: Normal, Strength/ROM Intact Neurological: A&Ox3, awake and alert, mentation is normal, speech is fluent and appropriate Psychiatric: affect is normal, does not appear anxious or depressed Vital Signs On Initial Exam: Initial Vitals Temp Pulse Resp BP Pulse Ox 102.6 F 89 16 166/66 96 07/07/18 19:06 07/07/18 19:06 07/07/18 19:06 07/07/18 19:06 07/07/18 19:06 Diagnostics - Vital Signs Vital Signs Temp Pulse Resp BP Pulse Ox 07/07/18 19:06 102.6 F 89 16 166/66 96 - Laboratory Lab Results: Lab Results 07/07/18 Range/Units 19:22 WBC 7.0 (3.5-10.8) 10^3/ul RBC 4.44 (4.00-5.40) 10^6/ul Hgb 13.6 (12.0-16.0) g/dl Hct 40 (35-47) % MCV 90 (80-97) fL MCH 31 (27-31) pg MCHC 34 (31-36) g/dl RDW 13 (10.5-15) % Plt Count 233 (150-450) 10^3/ul MPV 9.4 (7.4-10.4) fL Neut % (Auto) 74.9 % Lymph % (Auto) 13.4 % [place] % (Auto) 9.9 % Eos % (Auto) 0.5 % Baso % (Auto) 1.3 % Absolute Neuts (auto) 5.3 (1.5-7.7) 10^3/ul Absolute Lymphs (auto) 0.9 L (1.0-4.8) 10^3/ul Absolute Monos (auto) 0.7 (0-0.8) 10^3/ul Absolute Eos (auto) 0 (0-0.6) 10^3/ul Absolute Basos (auto) 0.1 (0-0.2) 10^3/ul Absolute Nucleated RBC 0 10^3/ul Nucleated RBC % 0 Result Diagrams: 07/07/18 19:22 07/07/18 19:22 Lab Statement: Any lab studies that have been ordered have been reviewed, and results considered in the medical decision making process. - Radiology CXR Radiology Interpretation Completed By: ED Physician Summary of Radiographic Findings: No active disease. Pending official radiology report. - CT abdomen/pelvis CT Interpretation Completed By: Radiologist Summary of CT Findings: 1. Resolution of sigmoid diverticulitis since 2014. Diverticulosis is. again noted. 2. Mild bibasilar fibro-atelectatic change, greatest in the lower lobes which. is new or increased since the prior study. 3. Status post hysterectomy. 4. Slight relative prominence of the right ovary for age but is unchanged from. the prior study. ED physician has reviewed this imaging report. Abdominal Pain Fem Course/Dx - Course Course Of Treatment: An 82 y/o female accompanied by her daughter presents to [facility] with a chief complaint of abdominal pain since 09:00 07/07/18. The physical exam revealed lower abdominal tenderness without peritoneal signs. In the ED course she was given Benadryl Liq PO. CT abdomen/pelvis impression: 1. Resolution of sigmoid diverticulitis since 03/22/2015. Diverticulosis is. again noted. 2. Mild bibasilar fibro-atelectatic change, greatest in the lower lobes which. is new or increased since the prior study. 3. Status post hysterectomy. 4. Slight relative prominence of the right ovary for age but is unchanged from. the prior study. Lab results obtained. Urine blood 2+, urine RBC 3+. CXR showed no active disease. She will be discharged. The patient is agreeable with this plan. - Diagnoses Differential Diagnosis: Positive: Diverticulitis, Pneumonia, Urinary Tract Infection, Other - viral syndrome Provider Diagnoses: Fever Provider Diagnoses: (Ruled Out): Diverticulitis Discharge - Sign-Out/Discharge Documenting (check all that apply): Patient Departure - DC - Discharge Plan Condition: Good Disposition: HOME Patient Education Materials: Fever in Adults (ED), Hematuria (ED) Referrals: Cristiana Garcia MD [Primary Care Provider] - 3 Days (if no better) Additional Instructions: Your CT scan and chest x-ray did not show any sign of deep infection requiring antibiotics, so we are electing to hold on any antibiotic therapy at this time. The urinalysis showed some blood in the urine, which can be seen in the context of a febrile illness. It does not require any further treatment or evaluation at this time, but once this illness clears you should have another urinalysis checked in a few weeks. If the blood persists then, further workup would be indicated. - Billing Disposition and Condition Condition: GOOD Disposition: Home - Attestation Statements Document Initiated by Angie: Yes Documenting Realibe: Aramis Plummer Provider For Whom Angie is Documenting (Include Credential): Bethel Jacobsen MD Scribe Attestation: I, Aramis Plummer, scribed for Bethel Jacobsen MD on 07/08/18 at 1722. Scribe Documentation Reviewed: Yes Provider Attestation: The documentation as recorded by the Aramis walls accurately reflects the service I personally performed and the decisions made by me, Bethel Jacobsen MD Status of Scribe Document: Viewed
[2018-07-07 19:46] LABS: Albumin/Globulin Ratio 1.2 (1-3); EGFR Non-African American 56.7 (>60); Globulin 3.3 g/dL (2-4); Potassium 3.9 mmol/L (3.5-5.0); Total Bilirubin 0.5 mg/dL (0.2-1.0); Total Protein 7.3 g/dL (6.4-8.9)
[2018-07-07] MEDS ORDERED: diPHENhydraMINE LIQ* 12.5 MG/5 ML UDC ONE (21:32)
[2018-07-07] MEDS ORDERED: diPHENhydraMINE LIQ* 12.5 MG/5 ML UDC PO ONE (21:33)
[2018-07-07 21:48] LABS: Urine Appearance Clear; Urine Bacteria Absent (Absent); Urine Bilirubin Negative (Negative); Urine Blood 2+ (Negative); Urine Color Straw; Urine Glucose Negative (Negative); Urine Ketones Negative (Negative); Urine Nitrite Negative (Negative); Urine Protein Negative (Negative); Urine Red Blood Cell 3+(>10/hpf) (Absent); Urine Specific Gravity 1.006 (1.010-1.030); Urine Urobilinogen Negative (Negative); Urine White Blood Cell Absent (Absent)
[2018-07-07 22:41] VITALS: BP 151/73
--- NOTE | 2018-07-08 00:25 | CONS ---
CC: Dr. Cristiana Garcia * CONSULTATION REPORT: DATE OF CONSULT: 07/07/18 REFERRING PROVIDER: Dr. Jacobsen, emergency room physician. PRIMARY CARE PROVIDER: Dr. Cristiana Garcia. REASON FOR CONSULT: Abdominal pain. HISTORY OF PRESENT ILLNESS: Ms. Sandra Mae is a pleasant 82-year-old woman with a known history of diverticular disease mainly in the descending and sigmoid colon areas as she had 2 episodes of diverticulitis in the past 3 or 4 years who presented to the emergency room today with worsening crampy abdominal discomfort. She said she started to feel poorly yesterday and had a headache, but had a good appetite and was eating. She had no diarrhea and had a normal bowel movement. She developed some left-sided abdominal discomfort over the course of the day and was concerned that this may be diverticulitis and she presented to the emergency room earlier this evening. In the emergency room, she was noted to have a fever of 102. Her vital signs were, otherwise, unremarkable. She stated that she was starting to feel better while in the emergency room and was noted to have some minimal discomfort in the left lower quadrant of the abdomen without rebound, guarding, or peritoneal irritation. PAST MEDICAL HISTORY: Hypertension. PAST SURGICAL HISTORY: 1. Abdominal hysterectomy. 2. Open appendectomy. MEDICATIONS: At home include: 1. Amlodipine. 2. Flovent. 3. Mylanta p.r.n. ALLERGIES: To multiple medications including PENICILLIN, CEFACLOR, and QUINOLONES as well as IV CONTRAST DYE. SOCIAL HISTORY: She is a nonsmoker and a nondrinker. She is and lives with her . PHYSICAL EXAM: Temperature 102.6, pulse 89, blood pressure 166/66. In general , she is a pleasant elderly woman, appears much younger than her stated age. She is awake, alert, conversive, and quite energetic. Oral mucosa is moist. Her lungs are clear to auscultation with normal respiratory effort. Her heart was regular rate and rhythm without murmurs, rubs, or gallops. Her abdomen was soft and nondistended. She has a well-healed low transverse incision as well as a right midline incision without hernia. She had some normoactive bowel sounds throughout. She had some very mild tenderness in the left lower portion of her abdomen without rebound or guarding or peritoneal irritation. This was very mild. There was no other abdominal discomfort. DIAGNOSTIC STUDIES/LAB DATA: Laboratory workup included a white blood cell count of 7000 without a bandemia. Electrolytes, BUN, creatinine, liver function tests including total bilirubin were all unremarkable. She underwent a CAT scan of the abdomen and pelvis with oral contrast only as she has an IV CONTRAST ALLERGY. I did review these images. This also has been read by Radiology. This shows multiple diverticula throughout the descending colon and sigmoid, but no evidence of diverticulitis, free fluid, extraluminal air, or abscess. There appeared to be a right ovarian cyst, which was unchanged. Otherwise, the study was unremarkable. A chest x-ray also was unremarkable. A urinalysis did show some blood, but no evidence of bacteria or sign of infection. She has had an appendectomy in the past. IMPRESSION: Lower abdominal discomfort over the past 24 to 36 hours with a low - grade fever. She has a history of diverticulitis, but a CT scan done today shows no evidence of acute inflammatory diverticulitis at this point or other acute abnormality. Chest x-ray was unremarkable and I do not believe a urinalysis shows findings consistent with infection. I do not believe that she has acute diverticulitis and I would not treat her with oral or IV antibiotics at this time. She may well have a viral type of illness which will be self-limiting and I would recommend continued observation and if she worsens, then she should return back to the emergency room for further evaluation. I discussed this with her, Dr. Jacobsen, as well as her son, Dr. Aftab Mae, and we are comfortable with this plan and we will discharge her home here from the emergency room. [id number]/[facility] #: [id number] GER
== END 2018-07-07 22:41 | disposition home or self-care (01) ==
LOC: ED 19:04
DX: K57.92 Diverticulitis of intestine, part unspecified, without perforation or abscess without bleeding (principal); R11.0 Nausea; Z88.0 Allergy status to penicillin; R10.9 Unspecified abdominal pain; R50.9 Fever, unspecified
CPT/HCPCS: 36415; 71046; 74176; 80053; 81003; 81015; 85025; 87040; 99282; A9270-GY

== ENCOUNTER 2018-07-10 17:53 | Inpatient (IN) | payer MEDICARE, OTHER ==
--- NOTE | 2018-07-10 18:40 | ED ---
Abdominal Pain/Female - HPI Summary HPI Summary: This patient is an 82 year old female presenting to the ED with a cc of abd for the last seven days. She also c/o a fever, cough, and n/v. She rates the pain 7/ 10 in severity. Pt denies any abnormal BMs. - History of Current Complaint Chief Complaint: EDAbdPain Stated Complaint: FEVER/NAUSEA/ABD PAIN Time Seen by Provider: 07/10/18 18:04 Hx Obtained From: Patient Onset/Duration: Lasting Weeks - 1, Still Present Timing: Constant Pain Intensity: 7 Pain Scale Used: 0-10 Numeric Location: Diffuse Radiates: No Associated Signs and Symptoms: Positive: Other: - fever, cough, and n/v. Allergies/Adverse Reactions: Allergies Allergy/AdvReac Type Severity Reaction Status Date / Time amoxicillin Allergy Anaphylatic Verified 07/10/18 17:56 Shock ampicillin Allergy Anaphylatic Verified 07/10/18 17:56 Shock cefaclor [From Ceclor] Allergy Anaphylatic Verified 07/10/18 17:56 Shock cimetidine [From Tagamet] Allergy Anaphylatic Verified 07/10/18 17:56 Shock Iodinated Contrast- Oral and Allergy Anaphylatic Verified 07/10/18 17:56 IV Dye Shock levofloxacin Allergy Anaphylatic Verified 07/10/18 17:56 Shock morphine Allergy Anaphylatic Verified 07/10/18 17:56 Shock Penicillins Allergy Anaphylatic Verified 07/10/18 17:56 Shock terfenadine [From Seldane] Allergy Anaphylatic Verified 07/10/18 17:56 Shock food Allergy See Comment Uncoded 07/10/18 17:56 PMH/Surg Hx/FS Hx/Imm Hx Endocrine/Hematology History: Denies: Hx Diabetes, Hx Systemic Lupus Erythematosus Cardiovascular History: Denies: Hx Cardiomegaly, Hx Congestive Heart Failure, Hx Hypertension, Hx Pacemaker/ICD Respiratory History: Reports: Hx Asthma - moderate to severe, Hx Pneumonia, Hx Seasonal Allergies Denies: Hx Chronic Bronchitis, Hx Chronic Obstructive Pulmonary Disease (COPD ), Hx Cystic Fibrosis, Hx Lung Cancer, Hx Pleural Effusion, Hx Pulmonary Edema, Hx Pulmonary Embolism, Hx Sleep Apnea, Other Respiratory Problems/Disorders GI History: Reports: Hx Diverticulosis, Hx Gastroesophageal Reflux Disease, Hx Irritable Bowel, Hx Jaundice, Other GI Disorders - severe adhesions in abdomen with adhesive band around bowel Denies: Hx Cirrhosis, Hx Crohn's Disease, Hx Gall Bladder Disease, Hx Gastrointestinal Bleed, Hx Hiatal Hernia, Hx Obstructive Bowel, Hx Ileostomy, Hx Pyloric Stenosis, Hx Ulcer History: Denies: Hx Renal Disease Musculoskeletal History: Reports: Hx Arthritis, Hx Osteoporosis, Other Musculoskeletal History - collapsed vertebra in back Denies: Hx Rheumatoid Arthritis, Hx Back Problems, Hx Bursitis, Hx Congenital Bone Abnormalities, Hx Fibromyalgia, Hx Gout, Hx Orthopedic Injury, Hx Scoliosis, Hx Tendonitis Sensory History: Reports: Hx Contacts or Glasses Denies: Hx Cataracts, Hx Eye Injury, Hx Eye Prosthesis, Hx Glaucoma, Hx Legally Blind, Hx Macular Degeneration, Hx Vision Problem, Hx Deafness, Hx Hearing Aid, Hx Hearing Problem, Other Sensory Impairments Opthamlomology History: Reports: Hx Contacts or Glasses Denies: Hx Cataracts, Hx Eye Injury, Hx Eye Prosthesis, Hx Glaucoma, Hx Legally Blind, Hx Macular Degeneration, Hx Vision Problem, Other Sensory Impairments Neurological History: Reports: Hx Migraine Denies: Hx Dementia, Hx Developmental Delay, Hx Headaches, Hx Nerve Disease, Hx Seizures, Hx Spinal Cord Injury, Hx Transient Ischemic Attacks (TIA), Other Neuro Impairments/Disorders Psychiatric History: Denies: Hx Panic Disorder - Cancer History Cancer Type, Location and Year: BASAL CELL Hx Chemotherapy: No - Surgical History Surgery Procedure, Year, and Place: BASAL CELL REMOVED FROM ELBOW, cyst burst in left ovary, hysterectomy, appy, tonsilectomy (age 19) Hx Anesthesia Reactions: No - Immunization History Date of Tetanus Vaccine: unk Date of Influenza Vaccine: unk Infectious Disease History: No Infectious Disease History: Reports: Hx Hepatitis - 1956, Hx Shingles Denies: Hx Human Immunodeficiency Virus (HIV), Hx of Known/Suspected MRSA, Hx Tuberculosis, Hx Known/Suspected VRE, Hx Known/Suspected VRSA, History Other Infectious Disease, Traveled Outside the [place] in Last 30 Days - Family History Known Family History: Positive: Diabetes - Social History Alcohol Use: None Hx Substance Use: No Substance Use Type: Reports: None Hx Tobacco Use: No Smoking Status (MU): Never Smoked Tobacco Review of Systems Positive: Fever Positive: Cough Gastrointestinal: Negative - abnormal BM Positive: Abdominal Pain, Vomiting, Nausea All Other Systems Reviewed And Are Negative: Yes Physical Exam - Summary Physical Exam Summary: Appearance: The patient is well-nourished in no acute distress and in no acute pain. Skin: The skin is warm and dry and skin color reflects adequate perfusion. HEENT: The head is normocephalic and atraumatic. The pupils are equal and reactive. The conjunctivae are clear and without drainage. Nares are patent and without drainage. Mouth reveals moist mucous membranes and the throat is without erythema and exudate. The external ears are intact. The ear canals are patent and without drainage. The tympanic membranes are intact. Neck: The neck is supple with full range of motion and non-tender. There are no carotid bruits. There is no neck vein distension. Respiratory: Chest is non-tender. Wet cough present Cardiovascular: Heart is regular rate and rhythm. There is no murmur or rub auscultated. There is no peripheral edema and pulses are symmetrical and equal. Abdomen: The abdomen is soft and non-tender. There are normal bowel sounds heard in all four quadrants and there is no organomegaly palpated. Musculoskeletal: There is no back tenderness noted. Extremities are non-tender with full range of motion. There is good capillary refill. There is no peripheral edema or calf tenderness elicited. Neurological: Patient is alert and oriented to person, place and time. The patient has symmetrical motor strength in all four extremities. Cranial nerves are grossly intact. Deep tendon reflexes are symmetrical and equal in all four extremities. Psychiatric: The patient has an appropriate affect and does not exhibit any anxiety or depression. Triage Information Reviewed: Yes Vital Signs On Initial Exam: Initial Vitals Temp Pulse Resp BP Pulse Ox 101.8 F 79 14 138/62 94 07/10/18 17:56 07/10/18 17:56 07/10/18 17:56 07/10/18 17:56 07/10/18 17:56 Vital Signs Reviewed: Yes Diagnostics - Vital Signs Vital Signs Temp Pulse Resp BP Pulse Ox 07/10/18 17:56 101.8 F 79 14 138/62 94 - Laboratory Result Diagrams: 07/11/18 05:16 07/11/18 05:16 Lab Statement: Any lab studies that have been ordered have been reviewed, and results considered in the medical decision making process. Abdominal Pain Fem Course/Dx - Course Course Of Treatment: Ms. Mae presented to the emergency department with a complaint of cough and fever. She was nontoxic in appearance on arrival but was febrile. She was not tachycardic but her pulse ox was running low and sometimes in the 80s at rest. Fluids and antibiotics were ordered for her while labs were obtained. She has a lot of allergies and the suspicion is that she has pneumonia. Chest x-ray is consistent with the diagnosis and the hospitalists were contacted for admission. - Diagnoses Provider Diagnoses: PNA (pneumonia) - Provider Notifications Discussed Care Of Patient With: Dontae Huizar Time Discussed With Above Provider: 18:42 Instructed by Provider To: Admit As Inpatient Discharge - Sign-Out/Discharge Documenting (check all that apply): Patient Departure - admitted - Discharge Plan Condition: Fair Disposition: ADMITTED TO [facility] - Billing Disposition and Condition Condition: FAIR Disposition: Admitted to [facility] - Attestation Statements Document Initiated by Joanne: Yes Documenting Scribe: Pepe Matias Provider For Whom Angie is Documenting (Include Credential): Bethel Holbrook MD Scribe Attestation: Pepe Vitale , scribed for Bethel Holbrook MD on 07/11/18 at 1131. Scribe Documentation Reviewed: Yes Provider Attestation: The documentation as recorded by the Pepe walls accurately reflects the service I personally performed and the decisions made by Bethel williamson MD Status of Scribe Document: Viewed
[2018-07-10] MEDS ORDERED: NS 0.9% 1000 ML* 1,000 ML IV ONE (18:53)
[2018-07-10 18:56] LABS: Hematocrit 38 % (35-47); Mean Corpuscular HGB Conc 34 g/dl (31-36); Mean Corpuscular Hemoglobin 30 pg (27-31); Mean Corpuscular Volume 89 fL (80-97); Mean Platelet Volume 10.5 fL (7.4-10.4); Platelet Count 181 10^3/ul (150-450); Red Cell Distribution Width 13 % (10.5-15); White Blood Count 7.5 10^3/ul (3.5-10.8)
[2018-07-10 19:05] LABS: INR 1.06 (0.77-1.02)
[2018-07-10] MEDS ORDERED: DOXYcycline IV* 100 MG in NS 0.9% 250 ML* 250 ML IVPB ONE (19:06)
[2018-07-10 19:17] LABS: Albumin 4.1 g/dL (3.2-5.2); Albumin/Globulin Ratio 1.3 (1-3); BUN/Creatinine Ratio 11.8 (8-20); Calcium 8.7 mg/dL (8.6-10.3); EGFR African American 69.5 (>60); EGFR Non-African American 57.4 (>60); Globulin 3.1 g/dL (2-4); Potassium 3.5 mmol/L (3.5-5.0); Total Bilirubin 0.6 mg/dL (0.2-1.0); Total Protein 7.2 g/dL (6.4-8.9)
[2018-07-10 19:18] LABS: Troponin I 0.01 ng/mL (<0.04)
[2018-07-10 19:20] LABS: ABS Basophils 0 10^3/ul (0-0.2); ABS Eosinophils 0 10^3/ul (0-0.6); ABS Lymphocytes 0.7 10^3/ul (1.0-4.8); ABS Monocytes 0.5 10^3/ul (0-0.8); ABS Neutrophils 6.3 10^3/ul (1.5-7.7); ABS Nucleated RBC 0 10^3/ul; Eosinophil % 0 %; Lymphocyte % 9.4 %; Nucleated Red Blood Cells % 0.1
[2018-07-10] MEDS ORDERED: Acetaminophen TAB* 325 MG PO PRN (20:03)
[2018-07-10] MEDS ORDERED: Albuterol 2.5 MG/3 ML NEB.SOL* (0.083%) INH PRN (20:03)
[2018-07-10] MEDS ORDERED: guaiFENesin LIQ* 100 MG/5 ML UDC PO PRN (20:03)
[2018-07-10] MEDS ORDERED: Potassium Chlor TAB* 20 MEQ TAB.ER PO ONE (20:09)
[2018-07-10] MEDS ORDERED: NS 0.9% 1000 ML* 1,000 ML IV SCH ×2 (20:15)
[2018-07-10 20:41] LABS: TSH (Thyroid Stimulating Horm) 4.44 mcIU/mL (0.34-5.60)
[2018-07-10] MEDS ORDERED: Mometasone 220 MCG MDI INH SCH (21:00)
[2018-07-10] MEDS: Heparin VIAL(*) 5000 UNITS/ML VIAL (FIVE THOUSAND) SUBCUT SCH (22:29)
[2018-07-10 22:37] LABS: EGFR African American 76.1 (>60); EGFR Non-African American 62.9 (>60)
[2018-07-10 22:40] LABS: Troponin I 0.02 ng/mL (<0.04)
[2018-07-10] MEDS ORDERED: Ibuprofen TAB* 400 MG PO PRN (23:35)
[2018-07-11 00:24] LABS: BUN/Creatinine Ratio 11.5 (8-20); Calcium 7.6 mg/dL (8.6-10.3); EGFR African American 85.1 (>60); EGFR Non-African American 70.4 (>60); Potassium 3.2 mmol/L (3.5-5.0)
[2018-07-11] MEDS ORDERED: NS 0.9% w/ 40 Meq KCL 1000 ML* 1,000 ML IV SCH (01:00)
--- NOTE | 2018-07-11 01:34 | HP ---
CC: Dr. Garcia * HISTORY AND PHYSICAL: DATE OF ADMISSION: 07/10/18 PRIMARY CARE PROVIDER: Dr. Garcia. ATTENDING PHYSICIAN WHILE IN THE HOSPITAL: Dr. Zelaya * (report dictated by Danny Bravo NP). CHIEF COMPLAINT: 1. Cough. 2. Not feeling well. HISTORY OF PRESENTING ILLNESS: Mrs. Mae has been not feeling well for approximately the last week. She has had fever in the last 3 days. In fact, she was in the ER 3 days ago, was evaluated, and was discharged home with concern for maybe a viral illness. She unfortunately re-presented today after she still continued to have a fever, she started developing more cough, more trouble with breathing in the sense that it was hurting for her to take a deep breath. She to me denied having any neck pain, denied having any headaches today. She says that she has been feeling just more unwell. She says it has been hurting to take a deep breath. She has been taking Robitussin, which has been helping with her cough. She says that the cough has been productive at times of a clear sputum, but no mucopurulent-type sputum. She denied having any abdominal pain today with the exception that she does say it just hurts all over in her stomach and she says that she has been having myalgias and arthralgias. She does admit to having fevers, intermittently decreased appetite , particularly in the last few days she really has not been eating or drinking because she was worried that it would make her feel nauseated. She saw her primary today. She says that the flu was checked there, which was noted to be negative. We will try to get that record. She denied having any dysuria, no frequency. Because she continued to have fever, she saw her primary. Primary was concerned and sent her into the hospital today according to the patient. She denies having any sick contacts and says that she has just again generally been feeling very unwell. Because of the fact that again she had been not doing well, we were asked to evaluate for admission. PAST MEDICAL HISTORY: Significant for: 1. Hypertension. 2. She has a history of a heart murmur. 3. Spinal stenosis. 4. Diverticulosis. 5. Degenerative disk disease. 6. Vertigo. 7. GERD. 8. Asthma. 9. Migraines. 10. Allergic rhinitis. PAST SURGICAL HISTORY: 1. She has had basal cell removal. 2. Squamous cell cancer removal. 3. Cataract extraction x2. 4. She has had a total abdominal hysterectomy and bilateral salpingo- oophorectomy. 5. Appendectomy. MEDICATIONS: Home meds include: 1. Amlodipine 5 mg daily. 2. Magnesium oxide 500 mg daily. 3. Flovent 2 puffs inhaled b.i.d. 4. EpiPen 0.3 mg IM once p.r.n. 5. Vitamin D3 1000 mg p.o. daily. 6. Mylanta 15 cc p.o. b.i.d. as needed. ALLERGIES: Allergy to medications include PENICILLIN, CEFACLOR, QUINOLONES, IV DYE. FAMILY HISTORY: Mother had dementia. She said her father of old age. SOCIAL HISTORY: She does not smoke and does not drink. Surrogate decision- maker is her son, Aftab. REVIEW OF SYSTEMS: There is a documented fever. She denied having any significant weight change. There is no double vision. She denied having any ear discharge. There was no rhinorrhea, no sore throat. No thyroid enlargement. She does admit to having a chest pain, worse with taking a deep breath. She denied having any abdominal pain today. She did admit to having nausea, but no vomiting. No dysuria, no frequency. No seizure. There was no loss of consciousness. No pruritus and no skin ulcerations. Review of 14 systems completed, all others were negative. PHYSICAL EXAMINATION GENERAL: At this time, Mrs. Mae is an 82-year-old female patient. She is sitting in the ED stretcher. She does not appear to be in any acute distress. She appears to be well nourished and well developed. VITAL SIGNS: Blood pressure 130/62, pulse 79, respirations 14, O2 sat 94% on room air, temperature of 101.8. HEENT: Head is atraumatic and normocephalic. Eyes: EOMs are intact. Sclerae were anicteric and not pale. Throat: Oral mucosa appears to be dry. No oropharyngeal erythema. NECK: Supple. LUNGS: She had no wheezing heard. She had no crackles. She had equal diaphragmatic expansion. No rhonchi. HEART: Heart sounds S1, S2. She had regular rate and rhythm. No murmurs, rubs, or gallops. She did have a grade 2-3 aortic murmur, it was systolic. ABDOMEN: Soft, flat, nontender. Bowel sounds are present. EXTREMITIES: Pulses were 2+ throughout. She is moving all 4 extremities with 5 /5 strength. NEUROLOGICAL: She is awake, she is alert, she is oriented x3. Tongue is midline. Fibreglass Laminator were equal. She had no gross focal deficits. SKIN: Intact. DIAGNOSTIC STUDIES/LAB DATA: Labs today revealing a WBC of 7.5, RBC of 4.30, hemoglobin of 13.0, hematocrit of 38, and platelet count of 181. INR 1.06. Sodium was 126, potassium 3.5, chloride of 90, bicarb 28, BUN 11, creatinine 0.93, glucose 130, lactic 1.4, calcium 8.7, total bili 0.6. AST 42, ALT 16, alk phos 52. Troponin 0.01. EKG is pending. Albumin was 4.1. She did have a chest x-ray obtained today, which when I reviewed, it appears that there may be a developing infiltrate in the right lower lobe. Compared to her previous x-ray from 3 days ago, that was not present. She had an abdomino-pelvis CT obtained 3 days ago, which showed diverticulosis, mild bibasilar fibroatelectatic change greatest in the lower lobes, which is new or increased since prior studies, status post hysterectomy, slight relative prominence of the right ovary for age, but is unchanged from prior study. Old medical records were reviewed. ASSESSMENT AND PLAN: Mrs. Mae is an 82-year-old female patient coming into ED today with complaints of a week's worth of upper respiratory infection symptoms now 3 days' worth of intermittent fevers, now with worsening developed cough. She will be admitted under inpatient status for: 1. Presumed pneumonia, possibly viral in nature versus atypical pneumonia. At this point, I am going to place the patient on doxycycline. I will check legionella antigen, Streptococcus pneumoniae antigen. She has had blood cultures sent and they were received. I will consult with Dr. Villaseñor as well given her multiple allergies to medications. I think doxycycline is an appropriate choice. She is not wheezing on exam, so I do not think she deserves steroids at this point, so I will put her on p.r.n. nebs and I will continue her Flovent. I will continue to monitor her. I would like to get legionella, Streptococcus pneumoniae antigen. I am checking her for the flu here. I do not have access to the results, but I would just like to make sure that we are not not dealing with flu and we will continue to follow. 2. Elevated LFTs. Again, her AST was 42. This could be secondary to again viral illness. I will trend these. She had a CT scan just a few days ago, which was stable. I do not see any obstructive picture and she is again nontender on exam, so we will monitor this, that could be related to the viral illness. 3. Hyponatremia. This could be secondary to dehydration and the fact that she has not been eating or drinking in the last few days. We will hydrate. It also could be related to an atypical pneumonia, so we will check a BMP later tonight after she has gotten a liter of fluids and we will continue to follow. We will check TSH, cortisol, urine sodium, urine osmolality, and serum osmolality and we will continue to follow this. 3. Hypertension. I am going to hold her amlodipine in the setting of acute illness. 4. History of spinal stenosis and degenerative disk disease. Continue with p.r.n. Tylenol for pain. 5. History of asthma. Continue Flovent and p.r.n. albuterol. 6. History of migraines, not an active issue currently. We will monitor. 7. Gastroesophageal reflux disease. Continue with meds as prescribed. 8. DVT prophylaxis. She is high risk. She will be placed on heparin subcutaneous. 9. Code status. She is a full code. 10. Fluids, nutrition: She can have a regular diet. TIME SPENT: Time spent on the admission was 60 minutes; greater than half of the time was spent [id number] with the patient obtaining my history and physical, other half of the time spent going over the plan of care with the patient and implementing plan of care. I did discuss the plan of care with my attending, Dr. Zelaya; she is in agreement. DANNY BRAVO, THAD [id number]/[facility] #: [id number] GER
[2018-07-11 05:02] LABS: Urine Appearance Clear; Urine Bacteria Absent (Absent); Urine Bilirubin Negative (Negative); Urine Blood 1+ (Negative); Urine Color Yellow; Urine Glucose Negative (Negative); Urine Ketones Trace (Negative); Urine Nitrite Negative (Negative); Urine Protein Negative (Negative); Urine Red Blood Cell 1+(3-5/hpf) (Absent); Urine Specific Gravity 1.003 (1.010-1.030); Urine Urobilinogen Negative (Negative); Urine White Blood Cell Absent (Absent)
[2018-07-11] MEDS: Heparin VIAL(*) 5000 UNITS/ML VIAL (FIVE THOUSAND) SUBCUT SCH ×3 (05:30→21:38)
[2018-07-11 05:35] LABS: Hematocrit 35 % (35-47); Hemoglobin 11.9 g/dl (12.0-16.0); Mean Corpuscular HGB Conc 34 g/dl (31-36); Mean Corpuscular Hemoglobin 30 pg (27-31); Mean Corpuscular Volume 89 fL (80-97); Mean Platelet Volume 10.7 fL (7.4-10.4); Platelet Count 145 10^3/ul (150-450); Red Blood Count 3.97 10^6/ul (4.00-5.40); Red Cell Distribution Width 13 % (10.5-15); White Blood Count 4.9 10^3/ul (3.5-10.8)
[2018-07-11 05:44] LABS: INR 1.11 (0.77-1.02)
[2018-07-11 05:48] LABS: Albumin 3.1 g/dL (3.2-5.2); Calcium 8.1 mg/dL (8.6-10.3); Indirect Bilirubin 0.3 mg/dL (0.3-1.0); Potassium 3.5 mmol/L (3.5-5.0); Total Bilirubin 0.4 mg/dL (0.2-1.0)
[2018-07-11 05:54] LABS: Albumin/Globulin Ratio 1.4 (1-3); BUN/Creatinine Ratio 11.3 (8-20); EGFR African American 94.9 (>60); EGFR Non-African American 78.4 (>60); Globulin 2.2 g/dL (2-4); Total Protein 5.3 g/dL (6.4-8.9)
[2018-07-11 06:02] LABS: ABS Basophils 0 10^3/ul (0-0.2); ABS Eosinophils 0 10^3/ul (0-0.6); ABS Lymphocytes 0.7 10^3/ul (1.0-4.8); ABS Monocytes 0.4 10^3/ul (0-0.8); ABS Neutrophils 3.8 10^3/ul (1.5-7.7); ABS Nucleated RBC 0 10^3/ul; Eosinophil % 0.1 %; Large Platelets Present; Lymphocyte % 13.8 %; Nucleated Red Blood Cells % 0
[2018-07-11] MEDS: DOXYcycline IV* 100 MG in NS 0.9% 250 ML* 250 ML IVPB SCH ×2 (09:44→20:28)
[2018-07-11 13:09] LABS: Influenza A Molecular NEGATIVE (Negative); Influenza B Molecular NEGATIVE (Negative)
--- NOTE | 2018-07-11 14:21 | PN ---
Subjective Date of Service: 07/11/18 Interval History: Ms Mae denies any pain at this time. She states she continues to cough and bring up sputum but she is swallowing it down. She is anxious to get home as soon as possible. Objective Active Medications: Acetaminophen (Tylenol Tab*) 650 mg PO Q4H PRN PRN Reason: FEVER/PAIN Albuterol (Ventolin 2.5 Mg/3 Ml Neb.Makayla*) 2.5 mg INH Q2H PRN PRN Reason: SOB/WHEEZING Guaifenesin (Robitussin*) 5 ml PO Q6H PRN PRN Reason: COUGH Guaifenesin/Dextromethorphan (Robitussin Dm*) 5 ml PO BEDTIME [facility] Heparin Sodium (Porcine) (Heparin Vial(*)) 5,000 units SUBCUT Q8HR [facility] Last Admin: 07/11/18 05:30 Dose: Not Given Doxycycline Hyclate 100 mg/ (Sodium Chloride) 250 mls @ 250 mls/hr IVPB Q12H [facility] Last Admin: 07/11/18 09:44 Dose: 250 mls/hr Potassium Chloride/Sodium Chloride (Ns 0.9% W/ 40 Meq Kcl 1000 Ml*) 1,000 mls @ 75 mls/hr IV .PER RATE [facility] Last Admin: 07/11/18 01:19 Dose: 75 mls/hr Ibuprofen (Motrin Tab*) 400 mg PO Q8HR PRN PRN Reason: PAIN OR TEMPERATURE Last Admin: 07/10/18 23:56 Dose: 400 mg Mometasone Furoate (Asmanex 220 Mcg Mdi *) 2 puff INH QPM [facility] Last Admin: 07/11/18 02:38 Dose: Not Given Prednisone (Deltasone Tab*) 40 mg PO DAILY [facility] Vital Signs - 8 hr 07/11/18 07/11/18 07/11/18 07:39 07:56 08:00 Temperature 97.8 F Pulse Rate 70 Respiratory 20 20 Rate Blood Pressure 123/47 (mmHg) O2 Sat by Pulse 91 93 93 Oximetry 07/11/18 11:19 Temperature Pulse Rate 76 Respiratory 16 Rate Blood Pressure 114/39 (mmHg) O2 Sat by Pulse 93 Oximetry Oxygen Devices in Use Now: None Appearance: Elderly female lying in bed, NAD Eyes: No Scleral Icterus Ears/Nose/Mouth/Throat: Mucous Membranes Moist Respiratory: Symmetrical Chest Expansion and Respiratory Effort, - - tight sounding breath sounds, harsh intermittent cough Cardiovascular: NL Sounds; No Murmurs; No JVD, RRR, No Edema Abdominal: NL Sounds; No Tenderness; No Distention Extremities: No Clubbing, Cyanosis Skin: No Nodules or Sclerosis Neurological: Alert and Oriented x 3 Result Diagrams: 07/11/18 05:16 07/11/18 05:16 Microbiology and Other Data: Microbiology 07/11/18 12:35 Influenza Types A,B Antigen - Final Nasal Specimen received for Influenza A/B Molecular testing 07/11/18 04:30 Legionella Urinary Antigen - Final Urine Negative Legionella Antigen Streptococcus pneumoniae Ag Screen - Final Negative S. pneumo Antigen Assess/Plan/Problems-Billing Ms Mae is an 82 yo F who has a h/o HTN and asthma who presented to the ER with c/o cough and malaise and was admitted for possible pneumonia. - Patient Problems (1) Community acquired pneumonia Current Visit: Yes Status: Acute Code(s): J18.9 - PNEUMONIA, UNSPECIFIED ORGANISM SNOMED Code(s): 911022806 Comment: The patient will continue on doxycycline for now. ID consult this afternoon. Will start prednisone 40mg daily x5 days due to her h/o asthma and current tight sounding breath sounds. The prednisone may help with inflammation. Continue inhaled steroid. (2) Asthma Current Visit: Yes Status: Acute Code(s): J45.909 - UNSPECIFIED ASTHMA, UNCOMPLICATED SNOMED Code(s): 769014026 Comment: No significant wheezing but she sounds tight. As above will start prednisone. (3) HTN (hypertension) Current Visit: Yes Status: Acute Code(s): I10 - ESSENTIAL (PRIMARY) HYPERTENSION SNOMED Code(s): 15410412 Comment: BP is under good control. Will resume amlodipine at home dose tomorrow. (4) DVT prophylaxis Current Visit: Yes Status: Acute Code(s): DWI9329 - SNOMED Code(s): 755262688 Comment: SQ heparin (5) Full code status Current Visit: Yes Status: Acute Code(s): Z78.9 - OTHER SPECIFIED HEALTH STATUS SNOMED Code(s): 572190955
[2018-07-11] MEDS: predniSONE TAB* 20 MG PO SCH (14:56)
--- NOTE | 2018-07-11 15:47 | CONS ---
CONSULTATION REPORT: DATE OF CONSULT: 07/11/18 REQUESTING PHYSICIAN: Dr. Wesley. CONSULTING SERVICE: Infectious Disease. REASON FOR CONSULT: Fever. IMPRESSION: 1. Few days of fever, some right-sided abdominal and lower chest pain, infiltrate in the right base on chest x-ray, slight bilateral conjunctivitis, rhinorrhea. I think she most likely has a viral pneumonia, could be bacterial as well. Her influenza PCR was negative. Adenovirus is a consideration. If bacterial, atypical organisms are possible. 2. Allergy to AMOXICILLIN, CEPHALOSPORINS, FLUOROQUINOLONES caused anaphylaxis and respiratory distress. 3. Diverticulosis. 4. Asthma. RECOMMENDATIONS: Agree with steroid taper and doxycycline. Give her a dose by mouth before she goes. Makes sure she tolerates it okay and if not, azithromycin would be another consideration. Chest x-ray in 1 month to ensure resolution. HISTORY OF PRESENT ILLNESS: This is an 82-year-old woman with asthma, uses an inhaler at home from time to time and has had been ill for the last week or so, had some right-sided abdominal and lower chest pain, was seen in the ER on 07/07. There was mild bibasilar fibro-atelectatic change in the lower lobes, new compared to previous study. She was not felt to have infectious process, was discharged from the ER. She had worsening cough, which was occasionally productive, but without hemoptysis. She had fevers and malaise at home. She came into the hospital on 07/10/18. White blood cell count was 7000. She had a fever of 38.8. Her saturations were a bit low on room air, which improved with 2 L of oxygen. She was started on antibiotics and corticosteroids. She had had some wheezing and was using her inhaler more. She was having cough that was quite tiresome. This morning, her breathing is little bit better, she is on room air. She is still having a cough, which today has been nonproductive , has not been able to produce a sample. She did have a urine antigen for legionella and pneumococcus, which were negative. PAST MEDICAL HISTORY: 1. Asthma. 2. Hypertension. 3. Spinal stenosis. 4. Diverticulosis and history of diverticulitis. 5. Degenerative disk disease. 6. Vertigo. 7. Gastroesophageal reflux disease. 8. Migraines. 9. Allergic rhinitis. PAST SURGICAL HISTORY: 1. History of skin cancer resection. 2. Cataract extraction x2. 3. Status post abdominal hysterectomy and bilateral salpingo-oophorectomy. 4. Status post appendectomy. ALLERGIES: 1. PENICILLIN, CEFACLOR, QUINOLONES caused anaphylaxis and respiratory distress. 2. IV DYE. MEDICATIONS: 1. Albuterol. 2. Amlodipine. 3. Doxycycline 100 mg IV every 12 hours. 4. Guaifenesin at bedtime and as needed. 5. Heparin subcutaneous injection. 6. Ibuprofen as needed. 7. Prednisone 40 mg a day. SOCIAL HISTORY: She lives in [place]. No sick contacts. She is a nonsmoker and does not use alcohol. FAMILY HISTORY: Mother with history of dementia. Father , old age. REVIEW OF SYSTEMS: All negative except as noted above to a 14-point review. PHYSICAL EXAM: Vital Signs: Temperature is 37, heart rate is 76, respiratory rate 16, blood pressure , oxygen saturation 93% on room air. In general, she is awake, not in distress. Neurologic: She is oriented x3. Follows all commands. Answers all questions appropriately. Moves all her extremities. HEENT : There is slight bilateral conjunctival injection. Oropharynx without lesions. Neck is supple without mass. Heart is regular rate and rhythm without murmurs, rubs, or gallops. Lungs are clear to auscultation bilaterally without wheeze, rale, or egophony. Abdomen: Soft, nontender, nondistended. There are bowel sounds present. Skin: There is no rash or splinter hemorrhage. Musculoskeletal: There is no spine tenderness to palpation. No joint synovitis. DIAGNOSTIC STUDIES/LAB DATA: White blood cell count 4, hemoglobin 11.9, platelets 145. Creatinine is 0.7. Please see impression and recommendations as outlined above, which I have discussed with Dr. Wesley. Thanks for asking me to see Dr. Mae in consultation. [id number]/[facility] #: [id number] [facility]
[2018-07-11] MEDS ORDERED: diPHENhydraMINE LIQ* 12.5 MG/5 ML UDC PO ONE (17:32)
[2018-07-11] MEDS ORDERED: LEVALBUTEROL INH PRN (19:30)
[2018-07-11] MEDS: PTO:Fluticasone HFA 110 mcg(NF) MDI INH SCH (20:03)
[2018-07-11] MEDS ORDERED: GUAIFENESIN DM PO SCH (21:00)
[2018-07-12] MEDS: Heparin VIAL(*) 5000 UNITS/ML VIAL (FIVE THOUSAND) SUBCUT SCH (05:13)
[2018-07-12] MEDS: PTO:Fluticasone HFA 110 mcg(NF) MDI INH SCH (07:44)
[2018-07-12 08:31] VITALS: BP 165/55
[2018-07-12] MEDS: predniSONE TAB* 20 MG PO SCH (08:41)
[2018-07-12] MEDS ORDERED: amLODIPine TAB* 5 MG PO SCH (09:00)
[2018-07-12] MEDS ORDERED: Azithromycin IV(*) 500 MG in NS 0.9% 250 ML* 250 ML IVPB SCH (09:00)
--- NOTE | 2018-07-12 12:26 | DS ---
CC: Dr. Garcia * DISCHARGE SUMMARY: DATE OF ADMISSION: 07/10/18 DATE OF DISCHARGE: 07/12/18 PRINCIPAL DISCHARGE DIAGNOSES: 1. Community-acquired pneumonia. 2. Asthma exacerbation. 3. Hyponatremia. SECONDARY DISCHARGE DIAGNOSES: 1. Hypertension. 2. History of spinal stenosis and degenerative joint disease. 3. History of migraines. 4. Gastroesophageal reflux disease. PHYSICAL EXAMINATION AT DISCHARGE: Temperature 97.8, heart rate 76, respiratory rate 18, pulse ox 99% on room air, blood pressure 165/55. General: Alert, well- appearing, elderly female in no distress. She is sitting upon edge of her bed eating breakfast. HEENT: Pupils are equal, round and reactive to light. Extraocular muscles are intact. Oral mucosa is moist. No pharyngeal exudates or erythema. Neck: No JVP. No cervical adenopathy. Chest: Systolic murmur heard best at the left upper sternal boarder with radiation throughout. She is in regular rate and rhythm. She has no wheezes, but rhonchi in the right base. Good air movement and breathing comfortably and able to speak in full sentences. Abdomen: Soft, nontender, nondistended. No guarding, no rebound. No CVA tenderness. Extremities: No edema, rashes, calf tenderness. She does have some superficial varicosities. Neurologic: Strength is 5/5 throughout. She is oriented x3 and has excellent comprehension. HOSPITAL COURSE BY PROBLEM: 1. Community-acquired pneumonia. Ms. Mae was admitted with a cough and decreased appetite and fever. In the ED, a chest x-ray revealed a right basilar infiltrate versus atelectasis. Of note, this had not been present on an x-ray from 3 days prior. So given her clinical syndrome, this was treated as a community- acquired pneumonia and she was placed on doxycycline due to extensive antibiotic allergies. Legionella and Strep pneumo antigen were negative. Blood cultures were negative. A sputum culture was unable to be obtained and an influenza swab was negative. Dr. Villaseñor was consulted who agreed with doxycycline and she said she has taken doxycycline many times in the past and tolerates it well. I am discharging her on 3 more days of doxycycline for a total of a 5-day course of antibiotics. 2. Asthma exacerbation. She was started on prednisone on 07/11/18. I am continuing her for 3 more days to complete a 5-day course of prednisone. 3. Hyponatremia. Her admission sodium was 126 and this slowly improved to 136 at the time of discharge. I suspect this was related to her respiratory symptoms. 4. Hypertension. Her antihypertensive were held during her admission given the concern for sepsis; however, she had not developed sepsis criteria and her antihypertensives are being resumed at the time of discharge. 5. Degenerative joint disease. This was not noted to be active during this admission. 6. Disposition: Ms. Mae is to follow up with Dr. Garcia within 1 week. She is being discharged to home where she lives with her and her son lives next door. I have explained to her that she needs to have a repeat chest x-ray within 1 month to ensure resolution of the infiltrate and she understands these instructions. She is instructed to take her doxycycline with a full glass of water, avoid sun exposure and avoid taking it with her vitamins or any milk or yogurt. [id number]/[facility] #: [id number] MTDD
== END 2018-07-12 12:00 | disposition home or self-care (01) | DRG 194 ==
LOC: ED 17:53 → MEDTELE 19:57
PROVIDERS: ADMIT Internal Medicine; ATTEND Internal Medicine
DX: J18.9 Pneumonia, unspecified organism (principal); J45.901 Unspecified asthma with (acute) exacerbation; E87.1 Hypo-osmolality and hyponatremia; K57.90 Diverticulosis of intestine, part unspecified, without perforation or abscess without bleeding; K21.9 Gastro-esophageal reflux disease without esophagitis; K58.9 Irritable bowel syndrome, unspecified; M19.90 Unspecified osteoarthritis, unspecified site; M81.0 Age-related osteoporosis without current pathological fracture; G43.909 Migraine, unspecified, not intractable, without status migrainosus; I10 Essential (primary) hypertension; M48.00 Spinal stenosis, site unspecified; R79.89 Other specified abnormal findings of blood chemistry; Z98.41 Cataract extraction status, right eye; Z85.828 Personal history of other malignant neoplasm of skin; Z98.42 Cataract extraction status, left eye; Z90.89 Acquired absence of other organs; Z90.710 Acquired absence of both cervix and uterus; Z88.1 Allergy status to other antibiotic agents; Z83.3 Family history of diabetes mellitus; Z88.0 Allergy status to penicillin; Z88.8 Allergy status to other drugs, medicaments and biological substances; Z91.041 Radiographic dye allergy status; Z90.722 Acquired absence of ovaries, bilateral; Z81.8 Family history of other mental and behavioral disorders
CPT/HCPCS: 36415; 71046; 80048; 80053; 80076; 81003; 81015; 82533; 82565; 83605; 83930; 83935; 84300; 84443; 84484; 84520; 85025; 85610; 85730; 87040; 87899; 93005; 94640; 99284; A9270-GY; J0456; J1644; J7512

== ENCOUNTER → 2018-08-20 16:35 | Emergency (ER) | payer MEDICARE, OTHER ==
--- NOTE | 2018-08-20 16:57 | ED ---
Lower Extremity - HPI Summary HPI Summary: Patient is an 82 y/o female who presents to the ED s/p fall. She tripped in her house and landed on her left knee. Patient had immediate severe pain, rated an 8 /10 in severity, which has now lessened in severity. She was initially unable to move her knee but now is able to. Patient was able to ambulate with the help of her cane. She also has an abrasion to her upper lip, but denies any head injury or LOC. Patient denies any SOB, neck pain, abdominal pain, or hip pain. She denies the use of blood thinners. Patient is accompanied by her family. - History of Current Complaint Chief Complaint: EDExtremityLower Stated Complaint: FALL, LEFT KNEE INJURY PER PT Time Seen by Provider: 08/20/18 16:52 Hx Obtained From: Patient Mechanism Of Injury: Fall From A Standing Position Onset of Pain: Immediate Onset/Duration: Still Present Severity Initially: Severe Severity Currently: Moderate Pain Intensity: 8 Pain Scale Used: 0-10 Numeric Timing: Constant Location: Is Discrete @ - left knee Associated Signs And Symptoms: Positive: Knee Pain. Negative: Abdominal Pain Aggravating Factor(s): Weight Bearing Able to Bear Weight: Yes - with cane - Allergies/Home Medications Allergies/Adverse Reactions: Allergies Allergy/AdvReac Type Severity Reaction Status Date / Time amoxicillin Allergy Anaphylatic Verified 08/20/18 16:46 Shock ampicillin Allergy Anaphylatic Verified 08/20/18 16:46 Shock cefaclor [From Ceclor] Allergy Anaphylatic Verified 08/20/18 16:46 Shock cimetidine [From Tagamet] Allergy Anaphylatic Verified 08/20/18 16:46 Shock Iodinated Contrast- Oral and Allergy Anaphylatic Verified 08/20/18 16:46 IV Dye Shock levofloxacin Allergy Anaphylatic Verified 08/20/18 16:46 Shock morphine Allergy Anaphylatic Verified 08/20/18 16:46 Shock Penicillins Allergy Anaphylatic Verified 08/20/18 16:46 Shock terfenadine [From Seldane] Allergy Anaphylatic Verified 08/20/18 16:46 Shock food Allergy See Comment Uncoded 07/10/18 17:56 PMH/Surg Hx/FS Hx/Imm Hx Endocrine/Hematology History: Denies: Hx Diabetes, Hx Systemic Lupus Erythematosus Cardiovascular History: Reports: Other Cardiovascular Problems/Disorders - HEART MURMUR Denies: Hx Cardiomegaly, Hx Congestive Heart Failure, Hx Hypertension, Hx Pacemaker/ICD Respiratory History: Reports: Hx Asthma - moderate to severe, Hx Pneumonia, Hx Seasonal Allergies Denies: Hx Chronic Bronchitis, Hx Chronic Obstructive Pulmonary Disease (COPD ), Hx Cystic Fibrosis, Hx Lung Cancer, Hx Pleural Effusion, Hx Pulmonary Edema, Hx Pulmonary Embolism, Hx Sleep Apnea, Other Respiratory Problems/Disorders GI History: Reports: Hx Diverticulosis, Hx Gastroesophageal Reflux Disease, Hx Irritable Bowel, Hx Jaundice, Other GI Disorders - severe adhesions in abdomen with adhesive band around bowel Denies: Hx Cirrhosis, Hx Crohn's Disease, Hx Gall Bladder Disease, Hx Gastrointestinal Bleed, Hx Hiatal Hernia, Hx Obstructive Bowel, Hx Ileostomy, Hx Pyloric Stenosis, Hx Ulcer History: Denies: Hx Renal Disease Musculoskeletal History: Reports: Hx Arthritis, Hx Osteoporosis, Other Musculoskeletal History - collapsed vertebra in back Denies: Hx Rheumatoid Arthritis, Hx Back Problems, Hx Bursitis, Hx Congenital Bone Abnormalities, Hx Fibromyalgia, Hx Gout, Hx Orthopedic Injury, Hx Scoliosis, Hx Tendonitis Sensory History: Reports: Hx Contacts or Glasses Denies: Hx Cataracts, Hx Eye Injury, Hx Eye Prosthesis, Hx Glaucoma, Hx Legally Blind, Hx Macular Degeneration, Hx Vision Problem, Hx Deafness, Hx Hearing Aid, Hx Hearing Problem, Other Sensory Impairments Opthamlomology History: Reports: Hx Contacts or Glasses Denies: Hx Cataracts, Hx Eye Injury, Hx Eye Prosthesis, Hx Glaucoma, Hx Legally Blind, Hx Macular Degeneration, Hx Vision Problem, Other Sensory Impairments Neurological History: Reports: Hx Migraine Denies: Hx Dementia, Hx Developmental Delay, Hx Headaches, Hx Nerve Disease, Hx Seizures, Hx Spinal Cord Injury, Hx Transient Ischemic Attacks (TIA), Other Neuro Impairments/Disorders Psychiatric History: Denies: Hx Panic Disorder - Cancer History Cancer Type, Location and Year: BASAL CELL Hx Chemotherapy: No - Surgical History Surgery Procedure, Year, and Place: BASAL CELL REMOVED FROM ELBOW, cyst burst in left ovary, hysterectomy, appy, tonsilectomy (age 19) Hx Anesthesia Reactions: No - Immunization History Date of Tetanus Vaccine: unk Date of Influenza Vaccine: unk Infectious Disease History: No Infectious Disease History: Reports: Hx Hepatitis - 1956, Hx Shingles Denies: Hx Human Immunodeficiency Virus (HIV), Hx of Known/Suspected MRSA, Hx Tuberculosis, Hx Known/Suspected VRE, Hx Known/Suspected VRSA, History Other Infectious Disease, Traveled Outside the [place] in Last 30 Days - Family History Known Family History: Positive: Diabetes - Social History Alcohol Use: None Hx Substance Use: No Substance Use Type: Reports: None Hx Tobacco Use: No Smoking Status (MU): Never Smoked Tobacco Review of Systems Negative: Shortness Of Breath Negative: Abdominal Pain Positive: Arthralgia - left knee. Negative: Myalgia - neck, Other - left hip pain Positive: Other - abrasion upper lip All Other Systems Reviewed And Are Negative: Yes Physical Exam - Summary Physical Exam Summary: Appearance: Well appearing, no pain distress Skin: warm, dry, reflects adequate perfusion, small ecchymosis on left knee cap , abrasion to upper lip Head/face: normal Eyes: EOMI, ROSCOE ENT: mucous membranes moist Neck: supple, non-tender Respiratory: CTA, breath sounds present Cardiovascular: RRR, pulses symmetrical, good pedal pulses Abdomen: non-tender, soft Bowel Sounds: present Musculoskeletal: strength/ROM intact, no effusions, tenderness just medial to left patella Neuro: normal, sensory motor intact, A&Ox3 Triage Information Reviewed: Yes Vital Signs On Initial Exam: Initial Vitals Temp Pulse Resp BP Pulse Ox 98.5 F 81 16 139/60 96 08/20/18 16:40 08/20/18 16:40 08/20/18 16:40 08/20/18 16:40 08/20/18 16:40 Vital Signs Reviewed: Yes Diagnostics - Vital Signs Vital Signs Temp Pulse Resp BP Pulse Ox 08/20/18 16:40 98.5 F 81 16 139/60 96 - Laboratory Lab Statement: Any lab studies that have been ordered have been reviewed, and results considered in the medical decision making process. - Radiology Knee XR Radiology Interpretation Completed By: ED Physician Summary of Radiographic Findings: Nondisplaced patellar fracture. Pending official radiology report. Lower Extremity Course/Dx - Course Course Of Treatment: Nurse's notes reviewed. Patient with fall onto the left patella with tenderness right there. X-ray read as negative by radiology but there appears to be in lower pole undisplaced fracture. Discussed with orthopedic agrees. She came and saw the patient in the ER and put her in a immobilizer. She was given a walker and shown how to use it. She'll follow-up with Ortho in 2 weeks' time. - Diagnoses Differential Diagnosis/HQI/PQRI: Positive: Contusion, Fracture (Closed) Provider Diagnoses: Nondisplaced comminuted fracture of left patella, Fall - Physician Notifications Discussed Care Of Patient With: Magali Mariscal Time Discussed With Above Provider: 17:47 Instructed by Provider To: MD Will See In ED Discharge - Sign-Out/Discharge Documenting (check all that apply): Patient Departure - Discharge Patient Received Moderate/Deep Sedation with Procedure: No - Discharge Plan Condition: Improved Disposition: HOME Patient Education Materials: Patellar Fracture (ED) Referrals: Cristiana Garcia MD [Primary Care Provider] - Additional Instructions: Tylenol, ibuprofen as needed. Ice to the area. Immobilizer. Use walker to walk. Follow-up with orthopedics in 13 days on Saturday. Return if worse or other concerns. - Billing Disposition and Condition Condition: IMPROVED Disposition: Home - Attestation Statements Document Initiated by Scribe: Yes Documenting Scribe: Cora Cai Provider For Whom Scribe is Documenting (Include Credential): Pepito Mayorga MD Scribe Attestation: Cora Vitale, scribed for Pepito Mayorga MD on 08/20/18 at 1828. Scribe Documentation Reviewed: Yes Provider Attestation: The documentation as recorded by the Cora walls accurately reflects the service I personally performed and the decisions made by me, Pepito Mayorga MD Status of Scribe Document: Viewed
[2018-08-20 18:49] VITALS: BP 178/68
--- NOTE | 2018-08-20 21:06 | CONS ---
CONSULTATION REPORT: DATE OF CONSULT: 08/20/18 - EMERGENCY DEPT CHIEF COMPLAINT: Left knee pain. HISTORY OF PRESENT ILLNESS: Briefly, Ms. Mae is a community ambulator who slipped or tripped, she cannot recall, and landed on her knee. She had a lot of excruciating pain. She was initially unable to get up and had some help getting up, but she was able to take a few steps. She states that she is able to still extend her leg, but pain was initially excruciating. She came to the ER, was diagnosed with a transverse inferior pole of the patellar fracture. She presented with her son, Dr. Mae, and her . She had the recent history of being hospitalized for pneumonia and she also had a recent jaw surgery. PAST MEDICAL HISTORY: Asthma, hypertension, spinal stenosis, diverticulosis, degenerative disk disease, vertigo, GERD, migraines, allergic rhinitis. PAST SURGICAL HISTORY: Skin cancer resection, cataract extraction x2, status post abdominal hysterectomy and bilateral salpingo oophorectomy status post appendectomy, recent jaw surgery with the tooth removal or drilling. MEDICATIONS: 1. Clindamycin for her tooth. 2. Albuterol. 3. Amlodipine. 4. Ibuprofen. ALLERGIES: PENICILLIN, CEFACLOR, QUINOLONES, cause anaphylaxis. Allergies to IV DYE. FAMILY HISTORY: Significant for her mother with history of dementia and father of old age. SOCIAL HISTORY: She lives in [place]. She is the mother of one of our general surgeons. 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 She lives alone with her near her family and ambulates without a walker or cane. She does not smoke or use any alcohol. REVIEW OF SYSTEMS: Significant only for the above complaint. Otherwise, negative for fevers, chills, numbness, tingling. Positive for recent jaw surgery and jaw pain. Otherwise, remainder of systems is negative. PHYSICAL EXAM: She is in no acute distress. She is well developed, well nourished. She is alert and oriented x3. She has pleasant mood and normal affect. Good balance and coordination of extremities. Temp of 98.5, pulse rate 81, respiratory rate 16, O2 saturation 96, blood pressure 139/60. Examination of the left leg demonstrates that skin is intact. There is no obvious abrasion. Skin is intact. Her calf is soft and nontender. She is able to extend her leg against gravity. She is mildly tender to palpation. She sensates to light touch about the first dorsal web space, medial, dorsal, and plantar foot. 2+ DP pulse. She is respiring comfortably. She is alert and oriented x3. Extremities are warm and well perfused. DIAGNOSTIC STUDIES/LAB DATA: X-rays of the left knee were reviewed and read as negative by the radiologist, but demonstrated inferior pole of the patellar fracture with well preserved joint space. ASSESSMENT AND PLAN: She has an inferior pole of patella fracture. We talked about the how she is able extend against gravity. There is no obvious distraction of the fracture and she has a good chance of healing. This is without any surgical treatment. We talked about ice, heat, antiinflammatories. We talked about pain medication. We also discussed that it takes 6 to 8 weeks for bones to heal. We talked about vitamin D, she is osteoporotic and takes vitamin D every day. We discussed the signs and symptoms of DVT. I told her that she needs to be ambulating with an assistive device as well as a knee immobilizer at all times. She is not allowed to drive. I will see her in the office in approximately 13 days for repeat x-rays to make sure she is healing okay. All questions were provided and answered. I will see her back in the office. [id number]/[facility] #: [id number] GER
== END | disposition home or self-care (01) ==
LOC: ED 16:35
DX: S82.002A Unspecified fracture of left patella, initial encounter for closed fracture (principal); W18.09XA Striking against other object with subsequent fall, initial encounter; Y92.009 Unspecified place in unspecified non-institutional (private) residence as the place of occurrence of the external cause; J45.909 Unspecified asthma, uncomplicated; Z88.0 Allergy status to penicillin; Z88.5 Allergy status to narcotic agent; Z85.828 Personal history of other malignant neoplasm of skin
CPT/HCPCS: 99282